=== PATIENT | female | born 1950 | race Caucasian/White ===

== ENCOUNTER 2017-01-18 10:38 | Inpatient (IN) | payer MEDICARE, OTHER ==
[2017-01-18 10:38] VITALS: BMI 17.4
[2017-01-18 11:12] LABS: BASO # 0.04 K/mm3 (0.0-2.0); BASO % 0.4 % (0.0-3.0); EOS # 0.1 (0.0-0.7); EOS % 0.4 % (1.5-5.0); GRAN % 73.3 % (50.0-68.0); HEMOGLOBIN 12.6 gm/dL (12.0-16.0); LYMPH # 2.2 (1.2-3.4); LYMPH % 19.7 % (22.0-35.0); MEAN CELL VOLUME 89.5 fL (80.0-105.0); MEAN CORPUSCULAR HEMOGLOBIN 30.9 pg (25.0-35.0); MEAN CORPUSCULAR HGB CONC 34.5 g/dl (31.0-37.0); MEAN PLATELET VOLUME 9.7 fl (7.0-11.0); MONO # 0.7 (0.1-0.6); MONO % 6.2 % (1.0-6.0); PLATELET COUNT 404 10^3/uL (120.0-450.0); RBC 4.08 10^6/uL (3.5-6.1); RED CELL DISTRIBUTION WIDTH 13.3 % (11.5-14.5); WHITE BLOOD COUNT 11.3 10^3/ul (4.5-11.0)
[2017-01-18 11:14] LABS: ALB/GLOB RATIO 1.3 (1.1-1.8); ALBUMIN 4.5 g/dL (3.0-4.8); ALT/SGPT 29 U/L (7-56); AST/SGOT 28 U/L (15-39); BLOOD UREA NITROGEN 10 mg/dL (7-21); CALCIUM 9.8 mg/dL (8.4-10.5); GFR AFRICAN-AMERICAN > 60; GFR NON-AFRICAN AMERICAN > 60
[2017-01-18 11:17] LABS: INR 1.09 (0.93-1.08); PARTIAL THROMBOPLASTIN TIME 30.3 Seconds (23.7-30.8); PROTHROMBIN TIME 11.8 Seconds (9.9-11.8)
[2017-01-18 11:26] LABS: B-TYPE NATRIURETIC PEPTIDE 447 pg/mL (0-450)
[2017-01-18 11:33] LABS: TROPONIN I < 0.01 ng/mL
--- NOTE | 2017-01-18 11:51 | RAD ---
HISTORY: chest pain COMPARISON: No prior. FINDINGS: LUNGS: No active pulmonary disease. PLEURA: No significant pleural effusion identified, no pneumothorax apparent. CARDIOVASCULAR: Normal. OSSEOUS STRUCTURES: No significant abnormalities. VISUALIZED UPPER ABDOMEN: Normal. OTHER FINDINGS: None. IMPRESSION: No active disease.
--- NOTE | 2017-01-18 11:55 | ED PDOC ---
Arrival/HPI - General Chief Complaint: Chest Pain Time Seen by Provider: 01/18/17 11:13 Historian: Patient - History of Present Illness Narrative History of Present Illness (Text): 01/18/17 11:58 A 66 year old female presents to the emergency department complaining of near syncope since this morning and retrosternal chest pain. Patient also reports dyspnea on exertion and chest pain is exertional in nature. Patient is a smoker. Denies any other complaints at this time. PMD: Dr. Lopez Symptom Onset: Sudden Symptom Course: Unchanged Activities at Onset: Rest Context: Home Past Medical History - Provider Review Nursing Documentation Reviewed: Yes - Infectious Disease Hx of Infectious Diseases: None - Cardiac Hx Cardiac Disorders: Yes Hx Hypertension: Yes - Pulmonary Hx Respiratory Disorders: No - HEENT Hx HEENT Disorder: No - Renal Hx Renal Disorder: No - Endocrine/Metabolic Hx Endocrine Disorders: No - Integumentary Hx Dermatological Disorder: No - Musculoskeletal/Rheumatological Hx Musculoskeletal Disorders: No - Gastrointestinal Hx Gastrointestinal Disorders: No - Psychiatric Hx Psychophysiologic Disorder: No Hx Substance Use: No - Past Surgical History Past Surgical History: No Previous - Anesthesia Hx Anesthesia: No Hx Anesthesia Reactions: No Hx Malignant Hyperthermia: No - Suicidal Assessment Feels Threatened In Home Enviroment: No Family/Social History - Physician Review Nursing Documentation Reviewed: Yes Family/Social History: No Known Family HX Smoking Status: Current Some Days Smoker Hx Alcohol Use: Yes Frequency of alcohol use: Socially Hx Substance Use: No Allergies/Home Meds Allergies/Adverse Reactions: Allergies No Known Allergies Allergy (Verified 05/27/14 05:42) Home Medications: Home Meds Medication Instructions Recorded Confirmed Losartan [Cozaar] 25 mg PO DAILY 01/18/17 01/18/17 Review of Systems - Physician Review All systems were reviewed & negative as marked: Yes Physical Exam - Physical Exam Narrative Physical Exam (Text): 01/18/17 11:56 - Review of Systems Constitutional: Normal. absent: Fatigue, Weight Change, Fevers Eyes: Normal ENT: Normal Respiratory: Normal absent: SOB, Cough, Sputum Cardiovascular: retrosternal chest pain, near syncope absent: Palpitations Gastrointestinal: Normal absent: Abdominal pain, Diarrhea, Nausea, Vomiting Genitourinary: Normal. absent: Dysuria, Frequency, Hematuria Musculoskeletal: Normal. absent: Arthralgias, Back Pain, Neck Pain Skin: Normal Neurological: Normal absent: Focal Weakness Endocrine: Normal Hemo/Lymphatic: Normal Psychiatric: Normal - Physical exam Patient appears age appropriate, speaking full sentences without difficulty - Systems Exam Head: Present: Atraumatic, Normocephalic Pupils: Present: PERRL Extraocular Muscles: Present: EOMI Conjunctiva: Present: Normal Mouth: Present: Moist Mucous Membranes Neck: Present: Normal Range of Motion. No: MIDLINE TENDERNESS, Paraspinal Tenderness Respiratory/Chest: Present: Clear to Auscultation, Good Air Exchange. No: Respiratory Distress, Accessory Muscle Use, Tachypnic Cardiovascular: Present: Regular Rate and Rhythm, Normal S1, S2, Peripheral Pulses Present. No: Murmurs Abdomen: Present: Normal Bowel Sounds, No: Tenderness, Peritoneal Signs, Rebound, Guarding, Distention Back: Present: Normal Inspection. No: Midline Tenderness, Paraspinal Tenderness Upper Extremity: Present: Normal Inspection. No: Cyanosis, Edema Lower Extremity: Present: Normal Inspection. No: Edema Neurological: Present: GCS=15, Speech Normal, cranial nerves II through XII fully intact with no cerebellar abnormality, neuro-sensory fully intact. No focal neurological deficits. Skin: Present: Warm, Dry, Normal Color. No: Rashes Lymphatic: Present: OX3, NI, NC Psychiatric: Present: Alert, Oriented x 3, Normal Insight, Normal Concentration Vital Signs Reviewed: Yes Vital Signs Temp Pulse Resp BP Pulse Ox 01/18/17 12:24 67 20 177/73 H 100 01/18/17 11:04 97.9 F 01/18/17 10:50 63 18 150/73 100 Blood Pressure: Normal Pulse: Regular Respiratory Rate: Normal Appearance: Positive for: Well-Appearing, Non-Toxic, Comfortable Pain Distress: None Mental Status: Positive for: Alert and Oriented X 3 Medical Decision Making ED Course and Treatment: 01/18/17 11:47 Impression: A 66 year old female with near syncope and chest pain. Differential Diagnosis included but are not limited to: acute coronary syndrome vs. pneumonia Plan: -- EKG -- chest xray -- labs -- Aspirin, Nitroglycerin -- Reassess and disposition Prior Visits: Notes and results from previous visits were reviewed. Patient was last seen in the emergency department on 05/27/14 for evaluation of lower back pain radiating to right leg. Progress Notes: EKG: Ordered, reviewed, and independently interpreted the EKG. Rate : 70 BPM Rhythm : NSR Interpretation : No ST-segment elevations, normal axis, normal intervals. Interpreted by me. Repeat EKG done 1/2 hr later. EKG: Ordered, reviewed, and independently interpreted the EKG. Rate : 60 BPM Rhythm : NSR Interpretation : No ST-segment elevations, normal axis, normal intervals, no evolving changes. Interpreted by me. 01/18/17 11:55 chest xray Creator : Juanpablo Scott MD IMPRESSION: No active disease. 01/18/17 12:[address] Lopez, states to admit to hospitalist pt states she is still having pain 3rd EKG with no evolving changes, troponin negative hospitalist paged, awaiting callback 01/18/17 13:[address] May paged 01/18/17 13:[address] May in detail, accepted pt to her service with Dr. Kim on consult pt states she feels much better and denies complaints, states pain resolved with duo/nebs - Lab Interpretations Lab Results: 01/18/17 10:50 01/18/17 10:50 Lab Results 01/18/17 10:50: Sodium 136, Potassium 3.8, Chloride 100, Carbon Dioxide 24, Anion Gap 16, BUN 10, Creatinine 0.6, Est GFR ( Amer) > 60, Est GFR (Non- Af Amer) > 60, Random Glucose 113 H, Calcium 9.8, Total Bilirubin 0.5, AST 28, ALT 29, Alkaline Phosphatase 110, Lactate Dehydrogenase 435, Total Creatine Kinase 58, Troponin I < 0.01, NT-Pro-B Natriuret Pep 447, Total Protein 7.9, Albumin 4.5, Globulin 3.4, Albumin/Globulin Ratio 1.3 01/18/17 10:50: PT 11.8, INR 1.09 H, APTT 30.3 01/18/17 10:50: WBC 11.3 H, RBC 4.08, Hgb 12.6, Hct 36.5, MCV 89.5, MCH 30.9, MCHC 34.5, RDW 13.3, Plt Count 404, MPV 9.7, Gran % 73.3 H, Lymph % (Auto) 19.7 L, [place] % (Auto) 6.2 H, Eos % (Auto) 0.4 L, Baso % (Auto) 0.4, Gran # 8.30 H, Lymph # 2.2, H[place]go # 0.7 H, Eos # 0.1, Baso # 0.04 I have reviewed the lab results: Yes - RAD Interpretation Radiology Orders: 01/18/17 10:54 CHEST PORTABLE [RAD] Stat - EKG Interpretation Interpreted by ED Physician: Yes Type: 12 lead EKG - Medication Orders Current Medication Orders: Discontinued Medications Albuterol/Ipratropium (Duoneb 3 Mg/0.5 Mg (3 Ml) Ud) Confirm Administered Dose 3 ml .ROUTE .STK-MED ONE Stop: 01/18/17 12:19 Last Admin: 01/18/17 12:20 Dose: 3 ml Aspirin (Aspirin Chewable) 324 mg PO STAT STA Stop: 01/18/17 11:14 Last Admin: 01/18/17 11:18 Dose: 324 mg Ketorolac Tromethamine (Toradol) 15 mg IVP STAT STA Stop: 01/18/17 12:01 Last Admin: 01/18/17 12:06 Dose: 15 mg Nitroglycerin (Nitrostat Sl Tab) 0.3 mg SL STAT STA Stop: 01/18/17 11:14 Last Admin: 01/18/17 11:20 Dose: 0.3 mg - Scribe Statement The provider has reviewed the documentation as recorded by the Reed Cortés Provider Scribe Attestation: All medical record entries made by the Scriblizbeth were at my direction and personally dictated by me. I have reviewed the chart and agree that the record accurately reflects my personal performance of the history, physical exam, medical decision making, and the department course for this patient. I have also personally directed, reviewed, and agree with the discharge instructions and disposition. Disposition/Present on Arrival - Present on Arrival Any Indicators Present on Arrival: No History of DVT/PE: No History of Uncontrolled Diabetes: No Urinary Catheter: No History of Decub. Ulcer: No History Surgical Site Infection Following: None - Disposition Have Diagnosis and Disposition been Completed?: Yes Diagnosis: Chest pain Disposition: HOSPITALIZED Disposition Time: 13:20 Patient Plan: Observation Patient Problems: Current Active Problems Problem Status Onset Chest pain Acute Condition: FAIR Discharge Instructions (ExitCare): Chest Pain (ED) Referrals: Fran Lopez MD [Primary Care Provider] - Follow up with primary
[2017-01-18] MEDS ORDERED: Albuterol-Ipratrop 3 mg / 0.5 (3 ml) UD ONE (12:18)
[2017-01-18] MEDS ORDERED: Albuterol-Ipratrop 3 mg / 0.5 (3 ml) UD IH PRN (13:22)
--- NOTE | 2017-01-18 16:28 | CARD ---
APPROVED REPORT EKG Measurement Heart [id number] [place] [id number] <Conclusion> Normal sinus rhythm with sinus arrhythmia Minimal voltage criteria for LVH, may be normal variant Borderline ECG
--- NOTE | 2017-01-18 16:30 | CARD ---
APPROVED REPORT EKG Measurement Heart [id number] [place] [id number] [id number] <Conclusion> Sinus bradycardia Minimal voltage criteria for LVH, may be normal variant Septal infarct, age undetermined Abnormal ECG
--- NOTE | 2017-01-18 16:33 | CARD ---
APPROVED REPORT EKG Measurement Heart [id number] [place] 116P64 [id number] <Conclusion> Normal sinus rhythm Moderate voltage criteria for LVH, may be normal variant Borderline ECG
[2017-01-18] MEDS ORDERED: Pneumococcal 23-Valent Vaccine IM ONE (16:48)
[2017-01-18 18:10] LABS: TROPONIN I < 0.01 ng/mL
[2017-01-18] MEDS ORDERED: Labetalol 5 mg/ml Inj 20ML IV STA (20:48)
--- NOTE | 2017-01-18 20:52 | CP.PCM.PN ---
Subjective - Date & Time of Evaluation Date of Evaluation: 01/18/17 Time of Evaluation: 20:47 - Subjective Subjective: Patient was seen at bedside. Her blood pressure was high-230/100, HR was 75/min. She also complained of low back pain. Denies headache, dizziness,lightheadedness,paraesthesia,weakness,leg weakness. Medical record was reviewed. This 66 year old woman was admitted with chest pain, cough and shortness of breath. Has PMH of HTN,COPD. Draft 230/100 75 back pain 22:16 219/86 Still has low back pain. Rx, Hydralazine 10 mg IV stat. Percocet 5/325 i PO stat. Objective - Vital Signs/Intake and Output Vital Signs (last 24 hours): Temp Pulse Resp BP Pulse Ox 98.3 F 73 20 196/96 H 97 01/18/17 16:57 01/18/17 18:00 01/18/17 16:57 01/18/17 18:20 01/18/17 14:45 - Medications Medications: Current Medications Albuterol/Ipratropium (Duoneb 3 Mg/0.5 Mg (3 Ml) Ud) 3 ml IH Q4H PRN PRN Reason: Wheezing Aspirin (Ecotrin) 81 mg PO DAILY LUDY Losartan Potassium (Cozaar) 25 mg PO DAILY LUDY - Labs Labs: PT 11.8 Seconds (9.9-11.8) 01/18/17 10:50 INR 1.09 (0.93-1.08) H 01/18/17 10:50 APTT 30.3 Seconds (23.7-30.8) 01/18/17 10:50 Assessment and Plan - Assessment and Plan (Free Text) Assessment: Elevated blood pressure reading. Hypertensive emergency. HTN. COPD. Chest pain. Low back pain. Plan: Tylenol 650 mg po stat. Hydralazine 10 mg po stat. Continue present management. 22:16 Nurse calls and tells that BP is 219/86. And she still has low back pain. Rx, Hydralazine 10 mg IV stat. Percocet 5/325 i PO stat.
[2017-01-18] MEDS ORDERED: Oxycodone/Acetaminophen 5/325 mg Tab PO STA (22:15)
[2017-01-18] MEDS: MethylPREDNISolone 40 mg Vial IVP SCH (22:26)
--- NOTE | 2017-01-19 05:24 | CON ---
DATE: REFERRING PHYSICIAN: Dr. May. REASON FOR CONSULTATION: Chest pain, cough, and shortness of breath. 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 No nausea, no vomiting, no diarrhea. No leg pain or leg swelling. PAST MEDICAL HISTORY: May have chronic obstructive lung disease, history of hypertension. SOCIAL HISTORY: She is a smoker, denied any alcohol use. FAMILY HISTORY: No significant cardiopulmonary disease reported. ALLERGIES: None known. MEDICATIONS: He is on Cozaar 25 mg daily, DuoNeb q. 4 hours p.r.n., Ecotrin 81 mg daily. REVIEW OF SYSTEMS: No headache or rhinitis. Has cough. Not much sputum production, short of breath. Had some pain earlier today and presently pain-free. No nausea, no vomiting, no diarrhea. No leg pain or leg swelling. PHYSICAL EXAMINATION GENERAL: Lying in the bed, in no acute distress. VITAL SIGNS: Temp is 98, heart rate is 74, respiratory rate is 20, blood pressure is 196/96, pulse ox 97% on room air. HEENT: Moist mucous membranes. Carotid airway, Mallampati score is 4. NECK: Supple. No JVD. LUNGS: Prolonged expiratory phase and wheezing. HEART: S1 and S2. ABDOMEN: Soft and nontender. No organomegaly. EXTREMITIES: No edema. NEUROLOGICAL: Awake, alert. Follows simple commands. LABORATORY DATA: Shows hemoglobin 12.6, hematocrit 36.5, WBC 11.3, .and platelet is 404. INR is 1.09, PTT is 30. Sodium 136, potassium 3.8, chloride 100, bicarbonate 24, BUN 10, creatinine 0.6, glucose 113, calcium 9.8. AST 28, ALT 29, alkaline phosphatase is 110, troponin is less than 0.01, albumin is 4.5. Chest x-ray done in the ER shows no infiltrate or effusion. EKG done in the ER shows normal sinus rhythm with sinus arrhythmia, minimal voltage criteria for LVH. IMPRESSION AND PLAN: Chest pain, probably muscular type with exacerbation of chronic obstructive pulmonary disease, uncontrolled hypertension, may have component of sleep apnea syndrome. Case discussed with Dr. May. We will place her on IV Solu-Medrol, doxycycline, inhaled bronchodilator. Continue antihypertensive medication, keep at 45 degree, gastric prophylaxis, DVT prophylaxis. The patient has to stop smoking. We will get chest x-ray without contrast to evaluate lung parenchyma. Thank you very much for following. Eli Mccann MD
[2017-01-19] MEDS: Albuterol-Ipratrop 3 mg / 0.5 (3 ml) UD IH SCH ×4 (06:09→19:55)
[2017-01-19] MEDS: MethylPREDNISolone 40 mg Vial IVP SCH ×3 (06:45→21:33)
[2017-01-19 10:05] LABS: HDL CHOLESTEROL 107 mg/dL (29-60)
[2017-01-19 10:16] LABS: LDL CHOLESTEROL 73 mg/dL (0-129)
[2017-01-19 10:17] LABS: TROPONIN I < 0.01 ng/mL
[2017-01-19 11:07] LABS: % IRON SATURATION 6 % (20-55); IRON 21 ug/dL (45-180); TOTAL IRON BINDING CAPACITY 339 ug/dL (265-497)
[2017-01-19] MEDS ORDERED: Aminophylline 25 mg/ml Inj ONE (12:10)
--- NOTE | 2017-01-19 14:30 | HP ---
DATE: 01/18/2017 IDENTIFICATION DATA: The patient was seen and examined on 01/18/2017 in the ER. CHIEF COMPLAINT: Chest pain, coughing and shortness of breath. HISTORY OF PRESENT ILLNESS: Ms. 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 No nausea, vomiting or diarrhea. No hematuria and no hematochezia. No swelling of the leg. No headache or dizziness. PAST MEDICAL HISTORY: Chronic obstructive lung disease and history of hypertension. SOCIAL HISTORY: Active smoker and denies any alcohol abuse. FAMILY HISTORY: No cardiomyopathy. No significant family history. ALLERGIES: THE PATIENT IS NOT ALLERGIC TO ANY MEDICATION. HOME MEDICATIONS: Cozaar, DuoNeb and Ecotrin. REVIEW OF SYSTEMS: The patient is seen and examined on the bedside and looking comfortable in telemetry. Discussion held with Dr. Mccann and the patient's nursing staff. Chest pain is better. Shortness of breath is better. No nausea, vomiting or diarrhea. No hematuria. No hematochezia. No swelling of the leg. PHYSICAL EXAMINATION: VITAL SIGNS: Temperature is 98, heart rate is 74, respiratory rate is 20, blood pressure of 196/59 and pulse oximetry 97% on room air. HEENT: Head is normocephalic and atraumatic. Eyes, PERRLA. Extraocular muscles intact. Conjunctivae are clear. Nose is patent. Mucous membranes moist.. NECK: Supple. No carotid bruit. No JVD or thyromegaly. CHEST: Bilaterally symmetrical. CARDIOPULMONARY: S1 and S2, positive. LUNGS: Clear to auscultation. ABDOMEN: Soft. Bowel sounds positive. No organomegaly. EXTREMITIES: No edema. No cyanosis. NEUROLOGIC: The patient is awake and alert. Moving all four extremities. No focal deficits. LABORATORY DATA: Hemoglobin of 12.6, hematocrit of 33.5, white blood cell of 11.3 and platelets of 404. Sodium of 136, potassium of 3.8, BUN of 10, creatinine of 0.6, and glucose of 113. AST of 28 and ALT of 29. ASSESSMENT AND PLAN: Ms. Keith Pickett came with chest pain, looks as muscular type with exacerbation of chronic obstructive pulmonary disease, uncontrolled hypertension, and sleep apnea syndrome. Discussion held with Dr. Mccann, started the patient on Solu-Medrol, doxycycline, and inhaled bronchodilator. Urged to quit smoking. Antihypertensive, gastric prophylaxis. The patient has chest x-ray done that showed no active disease by Dr. Mccann and CAT scan of the chest without contrast . The patient was seen by Dr. Cook ,for back pain and Dr. Cook gave hydralazine IV stat because of uncontrolled hypertension, Percocet given stat. We will follow up. Radha May MD MTDD
--- NOTE | 2017-01-19 15:03 | PN ---
DATE: 01/19/2017 PULMONARY PROGRESS NOTE REFERRING PHYSICIAN: Dr. May. SUBJECTIVE: The patient is examined and seen in the Nuclear Medicine Department where she was seen by Dr. May for cardiac workup which is in progress. Still some issues with uncontrolled hypertension. Still has some mild cough and shortness of breath. No chest pain on examination. No abdominal pain. No dysuria. No leg pain or leg swelling. PHYSICAL EXAMINATION: GENERAL: In no acute distress. VITAL SIGNS: Temperature is 98, heart rate is 77, respiratory rate is 20, blood pressure 183/77, pulse ox 99% on room air. HEENT: Small oral cavity. Crowded airway. NECK: Supple. No JVD. LUNGS: scattered rhonchi and wheezing. HEART: S1 and S2. ABDOMEN: Soft and nontender. No organomegaly. EXTREMITIES: No edema. NEUROLOGICAL: Awake, alert. Follow simple commands. MEDICATIONS: She is on hydralazine 10 mg q.i.d. p.r.n., Cozaar 100 mg daily, doxycycline 100 mg twice a day, DuoNeb q. 6 hours, Ecotrin 81 mg daily, Solu-Medrol 20 mg q. 8 hours. LABORATORY DATA: Shows iron today is 21. Cholesterol is 201. TSH is 0.63. CAT scan of the chest done and the report is still pending. IMPRESSION AND PLAN: Exacerbation of chronic obstructive lung disease, atypical chest pain with uncontrolled hypertension, may have a sleep apnea syndrome. Case discussed with Dr. May. Continue IV and inhaled bronchodilator. Continue antihypertensive medication and closely watch blood pressure, if continues to stay uncontrolled, may need hypertension workup including need to be ruled out. We will give her NicoDerm patch. Eli Mccann MD
--- NOTE | 2017-01-19 15:42 | CARD ---
APPROVED REPORT Protocol: LEXISCAN Test Type: Lexiscan Sestamibi Stress Test Attending Physician: Dr. Eli Kim Referring Physician: Dr. Radha May Test Indications: Chest Pain Height:5 ft 0 in Weight:90lbs Medications: Duoneb, Solumedrol, Percocet, Aspirin, Hydralazine, Trandate, Toradol Medical History: 66 y/o female with a history of htn, current smoker Target HR: 155 bpm Resting ECG: normal Resting Heart Rate: 85 bpm Resting Blood Pressure: 196/82mmHg Submaximum (85%): 132 bpm PROCEDURE Pharmacologic stress testing was performed using 0.4mg per 5ml of regadenoson given intravenously over 7-10 seconds. Reversal agent aminophyline 100 mg, given intravenously for Other. POST EXERCISE Reason for Termination: Protocol completed Target HR: No Max HR: 84 bpm 67% of Maximum Predicted HR: 155 bpm Exercise duration: 02:13 min:sec, 0 Stage Exercise capacity: 1.0METs Max Blood Pressure: 196/82mmHg Blood Pressure response to exercise: normal resting BP - appropriate response Heart Rate response to exercise: appropriate Chest Pain: No, none Angina index: 0 Arrhythmia: No, none ST Change: No, none Deviation: 0 mm TEST SUMMARY [id number]. INFUSIONDOSE 101:[id number]/.0. INFUSIONDOSE 201:[id number]/.0. INFUSIONDOSE 300:[id number]/.0. INTERPRETATION Stress EKG Conclusion: Negative IV Lexiscan for ischemia and for chest pain, Nuclear scan to follow. Signed by Eli Kim Electronically Approved: 01/19/2017 13:49:56 EXAM: Myocardial Perfusion REST/STRESS Stress Test Type: Pharmacologic Imaging Protocol Rest Spect myocardial perfusion imaging was performed in supine position 45 minutes following the injection of 10.3 mCi of Tc-99 Myoview. At peak stress, the patient was injected intravenously with 30.7mCi of Tc-99 tetrofosmin after an infusion time of 0 minutes and 10 seconds. Gated Stress Spect was performed 65 minutes after intravenous Tc-99 Myoview injection. The images were gated to evaluate regional wall motion and calculate ventricular ejection fraction.Images were reconstructed using backfilter projection method in short horizontal and verticle long axis. Spect slices were generated. LV Perfusion The quality of the study is good. The left ventricle is normal in size. The right ventricle is unremarkable. The lung uptake is within normal limits. The distribution of tracer reveals normal uptake pattern throughout the LV myocardium on the stress study. The rest myocardial perfusion study shows no significant change. Wall Motion Wall motion study shows good contractility of the left ventricle. LVEF = 70%. Conclusion 1. Normal SPECT myocardial perfusion study. 2. Normal gated wall motion of the left ventricle.
--- NOTE | 2017-01-19 16:13 | CT ---
PROCEDURE: CT Chest without contrast HISTORY: copd COMPARISON: None. TECHNIQUE: Contiguous axial images were obtained through the chest without intravenous contrast enhancement. Sagittal and coronal reconstructions were performed. Radiation dose (DLP): 187 mGy-cm. This CT exam was performed using one or more of the following dose reduction techniques: Automated exposure control, adjustment of the mA and/or kV according to patient size, and/or use of iterative reconstruction technique. FINDINGS: LUNGS: There is minimal apical scarring. There is a 6 mm calcified granuloma at the right lung base. The lungs are otherwise clear MEDIASTINUM: Unremarkable thoracic aorta. No aneurysm. Normal sized heart. Main pulmonary artery unremarkable. No vascular congestion. No lymphadenopathy. PLEURA: No pleural fluid. No pneumothorax. BONES: No fracture. No destructive lesion. UPPER ABDOMEN: Grossly unremarkable. OTHER FINDINGS: None. IMPRESSION: Unremarkable non-contrast enhanced CT of the chest.
--- NOTE | 2017-01-19 16:44 | CARD ---
APPROVED REPORT EXAM: Two-dimensional and M-mode echocardiogram with Doppler and color Doppler. INDICATION Chest Pain LVFX 2D DIMENSIONS Left Atrium (2D)4.1 (1.6-4.0cm)IVSd1.1 (0.7-1.1cm) LVDd4.9 (3.9-5.9cm)PWd1.1 (0.7-1.1cm) LVDs2.8 (2.5-4.0cm)FS (%) 42.9 % LVEF (%)73.8 (>50%) M-Mode DIMENSIONS Aortic Root3.00 (2.2-3.7cm)Aortic Cusp Exc.1.50 (1.5-2.0cm) Aortic Valve AoV Peak Hdgygszy321.0cm/sAoV VTI42.2cmAO Peak GR.24mmHg LVOT Peak Lgchrsvl655.0cm/sLVOT VTI26.60cmAO Mean GR.11mmHg Mitral Valve MV E Tiqlyimw74.6cm/sMV A Royigqqk976.0cm/sE/A ratio0.7 TDI Lateral E' Peak V7.51cm/sMedial E' Peak V5.65cm/sE/Lateral E'9.5 E/Medial E'12.7 Pulmonary Valve PV Peak Teqadcql547.0cm/sPV Peak Grad.6mmHg Tricuspid Valve TR Peak Bseaqlvn749of/sRAP SVCVUISW29fyHlYO Peak Gr.29mmHg JEMY52uvUs LEFT VENTRICLE The left ventricle is normal size. There is borderline concentric left ventricular hypertrophy. The left ventricular function is normal.EF-65-70% There is normal LV segmental wall motion. Transmitral Doppler flow pattern is Grade III-reversible restrictive diastolic dysfunction. No left ventricle thrombus noted on this study. There is no ventricular septal defect visualized. There is no left ventricular aneurysm. There is no mass noted in the left ventricle. RIGHT VENTRICLE The right ventricle is normal size. There is normal right ventricular wall thickness. The right ventricular systolic function is normal. ATRIA The left atrium is mildly dilated. The right atrium size is normal. The interatrial septum is intact with no evidence for an atrial septal defect. AORTIC VALVE The aortic valve is calcified but opens well. There is trace to mild aortic regurgitation. Aortic Sclerosis VS Mild There is no aortic valvular vegetation. MITRAL VALVE The mitral valve is thickened but opens well. Mitral regurgitation is trace. There is no mitral valve stenosis. There is no evidence of mitral valve prolapse. TRICUSPID VALVE The tricuspid valve leaflets are thickened , but open well. There is mild tricuspid regurgitation.RVSP-39 mmof hg. There is no tricuspid valve stenosis. There is no tricuspid valve prolapse or vegetation. PULMONIC VALVE The pulmonary valve is normal in structure. There is trace pulmonic valvular regurgitation. There is no pulmonic valvular stenosis. GREAT VESSELS The aortic root is normal in size. The ascending aorta is normal in size. The pulmonary artery is normal. The IVC is normal in size and collapses >50% with inspiration. PERICARDIAL EFFUSION There is no pleural effusion. There is no pericardial effusion. <Conclusion> The left ventricle is normal size. There is borderline concentric left ventricular hypertrophy. The left ventricular function is normal.EF-65-70% There is trace to mild aortic regurgitation. Aortic Sclerosis VS Mild Mitral regurgitation is trace. There is mild tricuspid regurgitation.RVSP-39 mmof hg. There is no pericardial effusion. The IVC is normal in size and collapses >50% with inspiration.
[2017-01-19] MEDS: PREDNISOLONE 1% OD SCH ×2 (17:23→21:34)
[2017-01-19] MEDS: EYE OD SCH ×2 (17:23→21:34)
[2017-01-19 17:32] LABS: FOLATE 18.6 ng/mL
--- NOTE | 2017-01-19 18:56 | CON ---
DATE: 01/19/2017 REASON FOR CONSULTATION: Cardiac evaluation, chest pain, shortness of breath. 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 Lopez sent to the ER and found to be uncontrolled hypertension. Initial blood pressure at one point 230/100 last night, initially was 170. The patient denies any episode of chest pain or recent exertion prior to that. Though she felt some tightness in the chest but no further episode of tightness or dyspnea on exertion was noted. PAST MEDICAL HISTORY: Significant for hypertension, questionably to COPD. SOCIAL HISTORY: Active tobacco abuse. FAMILY HISTORY: No significant history of coronary artery disease. ALLERGIES: No known drug allergies. CURRENT MEDICATIONS: The patient is taking Cozaar 25 mg, DuoNeb treatment p.r.n. and Ecotrin. REVIEW OF SYSTEMS: As per HPI. EKG shows normal sinus rhythm. No acute ST changes noted. LVH noted. PHYSICAL EXAMINATION: VITAL SIGNS: Height of the patient 5 feet. Weight of the patient 92 pounds. Blood pressure 172/74, heart rate 77, temperature febrile. HEENT: PERRLA. Extraocular muscles intact. NECK: Supple. No carotid bruits. No thyromegaly. CHEST: Clear to auscultation. HEART: S1 and S2 regular. ABDOMEN: Soft. EXTREMITIES: Clubbing and cyanosis negative. LABORATORY DATA: Blood workup as follows: WBC 11.3, hemoglobin 12.6, hematocrit 36.5, platelet count 44. Chemistries show sodium 130, potassium 3.9, chloride 100, carbon dioxide 24, anion gap of 16, BUN 10, creatinine 0.6, glucose 113. Troponin x2 negative. EKG shows normal sinus, no acute ST-T changes noted, and the patient possibly, the symptoms have been acute, uncontrolled hypertension and possible exacerbation of COPD. So far no evidence of acute OK. IMPRESSION: A 66 -year-old female with a history of active tobacco abuse, borderline hypertension, on Cozaar at low doses, admitted with uncontrolled hypertension. During the night, the patient's blood pressure went to 230/110, this morning also 190. The patent patient becomes bradycardic and junctional bradycardia, but after that no further episode of arrhythmia noted, possibly related to beta priya given IV. Rule out myocardial infarction, unlikely. Rule out coronary artery disease, those are unlikely, low probability. RECOMMENDATION: We will get echo to LV function. We will do stress test, also chronotropic incompetence. We will increase Cozaar to 100, give 10 mg of Norvasc, and also depending upon the response, we will continue hydralazine. We will send the workup for pheochromocytoma. Thank you for consult. For further recommendations and hospital course, we will follow with you. Eli Kim MD cc: Masoud Jeronimo MD
[2017-01-20] MEDS: Albuterol-Ipratrop 3 mg / 0.5 (3 ml) UD IH SCH ×3 (01:18→13:16)
--- NOTE | 2017-01-20 02:57 | PN ---
DATE: SUBJECTIVE: The patient seen and examined at the bedside, looks comfortable. Looks like tired and exhausted, went for many testing. Cough is better. Shortness of breath is better. No hematuria. No hematochezia. No swelling of the legs. No chest pain. PHYSICAL EXAMINATION VITAL SIGNS: Temperature 98.1, heart rate 77, respiratory rate is 20, blood pressure 180/77, pulse oximetry 99% on room air. HEENT: Normocephalic and atraumatic. Eyes: PERRLA. Extraocular motion is intact. Conjunctivae clear. Nose patent. NECK: Supple. No carotid bruits or thyromegaly. CHEST: Bilaterally symmetrical. HEART: S1 and S2 positive. LUNGS: Clear to auscultation. ABDOMEN: Soft. Bowel sounds present. No organomegaly. EXTREMITIES: No edema. No cyanosis. NEUROLOGIC: The patient is awake and alert. Moving all four extremities. No focal deficit. MEDICATIONS: Hydralazine, Cozaar, doxycycline, DuoNeb, Ecotrin and Solu-Medrol tapering doses. LABORATORY DATA: Iron 21, Cholesterol is 201. TSH is 0.63. CAT scan of the chest done. According to Dr. Ashley Geronimo, unremarkable non-contrast CT scan of the chest. ASSESSMENT AND PLAN: The patient is a 66-year-old lady with history of hypertension, questionable chronic obstructive pulmonary disease, active smoker and abuser, borderline hypertension on Cozaar at low dosage, he was admitted in the hospital with accelerated hypertension, blood pressure went to 230/110. The patient became bradycardic and junctional bradycardia, but after that no further episode of arrhythmia noted, possibly related to beta priya given IV. Rule out myocardial infarction, unlikely as per Dr. Kim. Rule out coronary artery disease, increased his Cozaar to 100, give 10 mg of Norvasc. He send the workup of pheochromocytoma. Seen by Dr. Mccann. Length of time discussion done with Dr. Lopez. Also exacerbation of chronic obstructive pulmonary disease, atypical chest pain, sleep apnea syndrome. Continue his bronchodilators. Nicoderm patch given because the patient was heavy smoker. Stress test done showed normal SPECT myocardial perfusion study, normal gated wall motion of the left ventricle. Echocardiography done reviewed by me. GI and DVT prophylaxis. Leukocytosis. Iron deficiency. Troponin x2 is negative. Hypercholesterolemia. We will follow. Radha May MD MTDLina
[2017-01-20] MEDS: MethylPREDNISolone 40 mg Vial IVP SCH (05:13)
[2017-01-20 07:53] LABS: HEMOGLOBIN 12.9 gm/dL (12.0-16.0); MEAN CORPUSCULAR HEMOGLOBIN 30.7 pg (25.0-35.0); MEAN CORPUSCULAR HGB CONC 34.1 g/dl (31.0-37.0); MEAN PLATELET VOLUME 9.3 fl (7.0-11.0); RBC 4.2 10^6/uL (3.5-6.1); RED CELL DISTRIBUTION WIDTH 13.5 % (11.5-14.5); WHITE BLOOD COUNT 18.2 10^3/ul (4.5-11.0)
[2017-01-20 08:06] LABS: BLOOD UREA NITROGEN 18 mg/dL (7-21); CALCIUM 10.4 mg/dL (8.4-10.5); GFR AFRICAN-AMERICAN > 60; GFR NON-AFRICAN AMERICAN > 60
[2017-01-20 09:49] LABS: MEAN CELL VOLUME 91.7 fL (80.0-105.0); MEAN CORPUSCULAR HEMOGLOBIN 30.9 pg (25.0-35.0); MEAN CORPUSCULAR HGB CONC 33.7 g/dl (31.0-37.0); MEAN PLATELET VOLUME 9.3 fl (7.0-11.0); PLATELET COUNT 349 10^3/uL (120.0-450.0); RBC 4.21 10^6/uL (3.5-6.1); RED CELL DISTRIBUTION WIDTH 13.7 % (11.5-14.5); WHITE BLOOD COUNT 19.7 10^3/ul (4.5-11.0)
[2017-01-20 10:06] LABS: LYMPHOCYTE 6 % (22.0-35.0); MONOCYTE 2 % (1.0-6.0); NEUTROPHIL 92 % (50.0-70.0); PLATELET ESTIMATE NORMAL (NORMAL)
[2017-01-20] MEDS: PREDNISOLONE 1% OD SCH ×2 (10:27→14:15)
[2017-01-20] MEDS: EYE OD SCH ×2 (10:27→14:15)
[2017-01-20 10:50] LABS: URINE BILIRUBIN NEGATIVE (NEGATIVE); URINE BLOOD NEGATIVE (NEGATIVE); URINE GLUCOSE (UA) 100 mg/dL (NEGATIVE); URINE LEUKOCYTE ESTERASE NEGATIVE Leu/uL (NEGATIVE); URINE NITRATE NEGATIVE (NEGATIVE); URINE PROTEIN 100 mg/dL (<30 mg/dL); URINE UROBILINOGEN 0.2 E.U./dL (<1 E.U./dL)
[2017-01-20 10:51] LABS: URINE APPEARANCE CLEAR (CLEAR); URINE COLOR YELLOW (YELLOW)
[2017-01-20 11:36] VITALS: RESP 18
[2017-01-20 11:41] LABS: URINE EPITHELIAL CELLS 0 - 2 /hpf (0-5); URINE RBC 0 - 2 /hpf (0-2)
[2017-01-20 11:42] LABS: URINE BACTERIA FEW (NEG)
[2017-01-20 12:58] LABS: CORTISOL AM 5.2 ug/dL (4.46-22.7)
[2017-01-20 13:02] LABS: FERRITIN 47.8 ng/mL
--- NOTE | 2017-01-20 14:55 | US ---
PROCEDURE: Bilateral renal artery duplex ultrasound. CLINICAL HISTORY: Renal artery stenosis. Uncontrolled hypertension. Evaluate for renovascular hypertension. PHYSICIAN(S): Diony Kelley M.D. TECHNIQUE: Duplex sonography with color-flow Doppler was used to evaluate the visualized segments of the main renal arteries. The patient was evaluated in a fasting state. Imaging in a supine and decubitus position was performed. Limited evaluation of the arcuate waveforms and resistive indices were performed. FINDINGS: The overall quality of the study is adequate. The kidneys are normal in size, shape, and location. Renal parenchyma is normal in thickness but somewhat echogenic. The right kidney measures 10.6cm in length and the left kidney measures 9.0cm in length. No solid renal masses, abnormal calcifications, or hydronephrosis is seen. The main right renal artery is well visualized from the aorta to the hilum. The peak systolic velocity in the right main renal artery is 215 cm/sec. This is consistent with a 0 to 49% stenosis in the main right renal artery. The arcuate waveforms are normal. The resistive index is normal. The main left renal artery is somewhat tortuous but also fairly well seen from its origin to the renal hilum. The peak systolic velocity in the main left renal artery is 177cm/sec. This corresponds to a 0 to 49% stenosis in the main left renal artery. The arcuate waveforms and resistive indices are normal. IMPRESSION: 1. The main renal arteries are well visualized. 2. No sonographically significant stenosis is identified. 3. The kidneys are normal and symmetric in size. There are no solid renal masses, abnormal calcifications or hydronephrosis noted. The renal parenchyma is somewhat echogenic
--- NOTE | 2017-01-20 15:28 | US ---
PROCEDURE: Ultrasound of the Kidneys HISTORY: Hypertensive emergency COMPARISON: Abdomen/pelvis CT with contrast 05/27/2014.. TECHNIQUE: Sonogram of the kidneys. FINDINGS: RIGHT KIDNEY: Measures: 10.5 x 4.2 x 5.0 cm. Normal in size, contour and echogenicity. No stone, solid mass lesion or hydronephrosis visualized. No perinephric fluid collection. LEFT KIDNEY: Measures: 9.1 x 4.3 x 4.4 cm. Normal in size, contour and echogenicity. No stone, solid mass lesion or hydronephrosis visualized. No perinephric fluid collection. OTHER FINDINGS: None. IMPRESSION: Unremarkable renal sonogram.
--- NOTE | 2017-01-20 16:21 | CON ---
DATE: 01/20/2017 REASON FOR CONSULTATION: Accelerated hypertension, hypertensive emergency. 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 In the emergency room she was found to have elevated blood pressure readings, BP was as high as 230/100. The patient's gives a dyspnea history of hypertension for three years. She reports she was not really getting any medical help because she had no insurance. She recently got insurance. She was only on Cozaar 25 mg per day at home. She denies any chest tightness or shortness of breath at present. She denies any diaphoresis. She had an echocardiogram done yesterday, which revealed ejection fraction of 65%. Mild concentric LVH. She also had a stress test, which was normal. There is no evidence of ischemia. Her blood pressure remains elevated. She is on multiple antihypertensives at present. PAST MEDICAL AND SURGICAL HISTORY: Hypertension, no diabetes, no history of CAD, no history of any surgical procedures. FAMILY HISTORY: Hypertension. SOCIAL HISTORY: Smoker, no alcohol use, no IV drug abuse, she is single, she has two kids. ALLERGIES: NO KNOWN DRUG ALLERGIES. MEDICATION AT HOME: Cozaar 25 daily. CURRENT MEDICATION: Aldactone 25 b.i.d., hydralazine 50 b.i.d., losartan 100, aspirin 81, Microzide 12.5, amlodipine 10, Pepcid 20, Solu-Medrol 20 IV q. 8, Xanax 0.25 b.i.d., DuoNeb, and doxycycline 100 q. 12. REVIEW OF SYSTEMS: All systems are reviewed, pertinent positives as mentioned in the history of presenting illness, rest unremarkable. PHYSICAL EXAMINATION: GENERAL: Thinly built elderly lady lying in bed. VITAL SIGNS: Blood pressure 165/75, heart rate 86, respiratory rate 20, and temperature 98. HEENT: Normocephalic, atraumatic, positive pallor. NECK: Supple. No JVD. LUNGS: Bilateral rhonchi, distant breath sounds, no rales. CARDIAC: S1 and S2, regular rate and rhythm, no murmurs and no rubs. ABDOMEN: Soft, nondistended, nontender, bowel sounds present. EXTREMITIES: No lower extremity edema. LABORATORY DATA: WBC 19.7, hemoglobin 13, hematocrit 38.6 and platelets 349. Neutrophils 92, lymphocytes 6%, INR 1.09, sodium 136, potassium 4.4, chloride 101, CO2 of 24, BUN 18, creatinine 0.6, glucose 138, calcium 10.4, albumin 4.5, iron saturation 6, iron 21, TIBC 339, troponin less than 0.01. RADIOLOGY: CT of the chest unremarkable, stress test normal, echocardiogram showing 65-70% EF with mild concentric hypertrophy. ASSESSMENT: 1. Hypertensive emergency. 2. Longstanding suboptimally controlled hypertension. 3. Chronic obstructive pulmonary disease. 4. Leukocytosis with left shift, ?related to steroids. PLAN: 1. Continue max dose ARB. 2. Continue max dose CCD. 3. Agree with Aldactone 25 b.i.d. 4. Continue hydralazine 50 b.i.d.? 5. Perhaps increase Aldactone to 50 b.i.d. 6. Check urinalysis and urine culture. 7. Renal ultrasound and renal artery Doppler to rule out renal artery stenosis. 8. Taper steroids as feasible. Thank you for the courtesy of this consultation. We will follow this patient closely with you. Dilma Burks MD
[2017-01-20 16:45] VITALS: BP 166/74; PULSE 101; TEMP 97; O2SAT 98
--- NOTE | 2017-01-20 19:31 | PN ---
REASON FOR CONSULTATION: Cardiac evaluation, chest pain, shortness of breath. SUBJECTIVE: The patient is a 66-year-old female, admitted with uncontrolled hypertension, 230 blood pressure. The patient denies any chest pain, shortness of breath, or any palpation. OBJECTIVE: GENERAL: Lying flat on the bed, not in apparent distress. VITAL SIGNS: Temperature afebrile, heart rate 79, and blood pressure 142/60. HEENT: PERRLA, intact. NECK: Supple. No carotid bruit or thyromegaly. CHEST: Clear to auscultation. HEART: S1, S2, regular. ABDOMEN: Soft. EXTREMITIES: Clubbing and cyanosis negative. LABORATORY DATA: Blood workup as follows: WBC 19.7, hemoglobin 13, hematocrit 38.6, platelet count 349. Chemistry showed sodium 137, potassium 4.4, chloride 101, carbon dioxide 24, anion gap of 15, BUN 18, creatinine 0.7. TSH 0.63. Cortisol sample level in a.m. was 5.2, within the normal limit. A stress test yesterday showed normal myocardial perfusion study, no reversible ischemia, essentially normal myocardial study, ejection fraction 70%. The patient had echocardiography done that showed ejection fraction of 65% to 70%, aortic sclerosis was mild. There was [id number] aortic regurgitation, mild tricuspid regurgitation. RV systolic pressure 39. IMPRESSION: A 66-year-old female with borderline hypertension, active tobacco abuse, admitted after feeling dizzy, chest tightness. Blood pressure admitting was significantly elevated. At one point, blood pressure was 230/100. The patient was treated aggressively with antihypertensive medication. Cozaar was increased to 100 mg, Norvasc 10 mg was added, and hydralazine 25 mg b.i.d. was started. A stress test and echo was done, essentially normal. Renal ultrasound was for aldosterone, metanephrine, and phenylephrine for workup for pheochromocytoma was sent, awaiting for the result, and the patient started Aldactone 25 mg b.i.d. and hydrochlorothiazide in addition to that. The patient significantly improved. Discussed in length with Dr. Lopez 2 to 3 times. The patient's blood pressure is controlled. Possibly, we will discharge in a day or two. We will discontinue Telemetry. We will send the renal artery duplex scan. We will follow with you. Further recommendation and hospital course: For now, we will continue medication. We will repeat the blood workup in the morning and discontinue Telemetry. Thank you Dr. Lopez for providing the opportunity in taking care of the patient. We will follow with you. Eli Kim MD
[2017-01-20] MEDS ORDERED: MethylPREDNISolone 40 mg Vial IVP SCH (22:00)
== END 2017-01-20 17:56 | disposition home or self-care (01) | DRG 191 ==
LOC: ED 10:38 → ERH 13:20 → 2RSO 14:40 → OBSVTOIN 01-19 15:39
PROVIDERS: ADMIT Internal Medicine; ATTEND Internal Medicine
DX: J44.1 Chronic obstructive pulmonary disease with (acute) exacerbation (principal); I16.1 Hypertensive emergency; I10 Essential (primary) hypertension; R00.1 Bradycardia, unspecified; T50.995A Adverse effect of other drugs, medicaments and biological substances, initial encounter; G47.30 Sleep apnea, unspecified; R07.89 Other chest pain; E61.1 Iron deficiency; D72.829 Elevated white blood cell count, unspecified; T38.0X5A Adverse effect of glucocorticoids and synthetic analogues, initial encounter; E78.00 Pure hypercholesterolemia, unspecified; F17.200 Nicotine dependence, unspecified, uncomplicated; Z79.899 Other long term (current) drug therapy; R40.2412 Glasgow coma scale score 13-15, at arrival to emergency department; I51.7 Cardiomegaly; M54.5 Low back pain

== ENCOUNTER 2018-05-12 06:21 | Day surgery (SDC) | payer MEDICARE ==
[2018-05-12] MEDS ORDERED: Iodixanol 320 MG/ML 100 ML BOTTLE IV ONE (07:08)
[2018-05-12] MEDS ORDERED: Iodixanol 320 MG/ML 200 ML BOTTLE IV ONE (07:08)
[2018-05-12] MEDS ORDERED: Iohexol 350mgl/ml 50 ML ONE (07:08)
[2018-05-12] MEDS ORDERED: Lidocaine 2% Inj (20ml) ONE (07:08)
[2018-05-12] MEDS ORDERED: Phenylephrine 10 mg/ml Inj ONE (07:08)
[2018-05-12] MEDS ORDERED: Nitroglycerin 50mg in D5W 0 MG/0 ML BOTTLE IV ONE (07:08)
[2018-05-12] MEDS ORDERED: Midazolam 2 MG/2 ML VIAL ONE (07:54)
[2018-05-12] MEDS ORDERED: Sodium Chloride 0.9% 1,000 ML IV SCH (08:15)
[2018-05-12 08:33] VITALS: TEMP 98.1
[2018-05-12 08:38] VITALS: RESP 18
[2018-05-12 10:37] VITALS: O2SAT 99
--- NOTE | 2018-05-12 11:19 | CARDCATH ---
PROCEDURE DATE: 05/12/2018 PROCEDURES: 1. Left and right coronary angiography. 2. Left ventriculography. 3. Right femoral arteriography. 4. Angio-Seal deployment. HISTORY: This is a 67-year-old woman who was advised preoperative cardiac catheterization prior to carotid endarterectomy. INDICATIONS: Preoperative assessment. FINDINGS: HEMODYNAMICS : The aortic pressure was 170/70, with left ventricular pressure of 170/10. CORONARY ANATOMY: 1. The left mainstem was normal. 2. Left anterior descending artery had minimal irregularities. 3. There was a 30% tapering in the early distal segment of the vessel. 4. There was also mild irregularities at the origin at takeoff of the first diagonal branch. The first diagonal branch itself had a 50% ostial stenosis. 5. Left circumflex artery had mild irregularities, this gave rise to 1 branch bifurcating obtuse marginal branch which had a mild 30% tapering at its midportion. 6. The right coronary artery was large and dominant, this had no evidence of significant disease. LEFT VENTRICULOGRAPHY: A hand injection was performed in the left ventricle revealing evidence of concentric LVH with supernormal systolic function with an ejection fraction of 80%. There was no aortic valve gradient noted on catheter pullback. Mitral regurgitation was not assessed. RIGHT FEMORAL ARTERIOGRAPHY: The right femoral arteriogram was performed in the CRAWFORD projection. This revealed no evidence of significant disease. An appropriate level of arterial puncture. The puncture site was then closed with deployment of an Angio-Seal device. CONCLUSION: 1. Mild nonobstructive coronary artery disease. 2. Supernormal left ventricular systolic function. RECOMMENDATIONS: Given the above findings, she appears stable to proceed with her carotid surgery as planned. Continued risk factor control and hypertension control was advised. Craig Mcdaniels MD cc: Rubens Spears MD
[2018-05-12 11:41] VITALS: BP 161/73; PULSE 73
== END 2018-05-12 12:20 | disposition home or self-care (01) ==
LOC: CATH 06:21
PROVIDERS: ATTEND Internal Medicine Cardiovascular Disease
DX: I25.10 Atherosclerotic heart disease of native coronary artery without angina pectoris (principal); I10 Essential (primary) hypertension
CPT/HCPCS: 36415; 86850; 86900; 93458; 99152; C1760; C1769; C2629; J1644; J2250; J3010; J7030; J7040; Q9966

== ENCOUNTER 2018-09-23 10:41 | Inpatient (IN) | payer MEDICARE ==
[2018-09-23 10:42] VITALS: BMI 17.4
[2018-09-23] MEDS ORDERED: Sodium Chloride 0.9% 1,000 ML IV STA (11:01)
--- NOTE | 2018-09-23 11:14 | ED PDOC ---
Arrival/HPI - General Chief Complaint: GI Problem Time Seen by Provider: 09/23/18 10:49 Historian: Patient - History of Present Illness Narrative History of Present Illness (Text): 09/23/18 11:16 68 year old female, with a past medical history of COPD and sleep apnea, who presents to the emergency department complaining of nausea and vomiting for 4 days. Patient reports one episode of vomiting. She also reports non bloody diar josé miguel every 20 minutes for the past 3 days and endorses 2 episodes today. Patient reports she feels "swollen" and endorses she she has not being eating well. Patient also endorses dizziness, weakness and abdominal pain. Patient denies any fever, chills, shortness of breath, chest pain, back pain or any other complaints. She also denies any use of antibiotics. PMD: Dr. Spears Time/Duration: < week Symptom Onset: Gradual Symptom Course: Unchanged Activities at Onset: Light Context: Home Past Medical History - Provider Review Nursing Documentation Reviewed: Yes - Infectious Disease Hx of Infectious Diseases: None - Cardiac Hx Hypertension: Yes Hx Pacemaker: No - Pulmonary Hx Respiratory Disorders: No - Neurological Hx Paralysis: No - HEENT Hx HEENT Disorder: No - Renal Hx Renal Disorder: No - Endocrine/Metabolic Hx Endocrine Disorders: No - Hematological/Oncological Hx Blood Transfusions: No - Integumentary Hx Dermatological Disorder: No - Musculoskeletal/Rheumatological Hx Musculoskeletal Disorders: No - Gastrointestinal Hx Gastrointestinal Disorders: No - Psychiatric Hx Emotional Abuse: No Hx Physical Abuse: No Hx Substance Use: No - Past Surgical History Past Surgical History: No Previous - Anesthesia Hx Anesthesia Reactions: No Hx Malignant Hyperthermia: No - Suicidal Assessment Feels Threatened In Home Enviroment: No Family/Social History - Physician Review Nursing Documentation Reviewed: Yes Family/Social History: Unknown Family HX Smoking Status: Current Some Days Smoker Hx Alcohol Use: Yes (SOCIALLY) Frequency of alcohol use: Socially Hx Substance Use: No Allergies/Home Meds Allergies/Adverse Reactions: Allergies No Known Allergies Allergy (Verified 09/23/18 10:48) Review of Systems - Physician Review All systems were reviewed & negative as marked: Yes - Review of Systems Constitutional: absent: Fevers Respiratory: absent: SOB, Cough Cardiovascular: absent: Chest Pain Gastrointestinal: Abdominal Pain, Diarrhea, Nausea, Vomiting Musculoskeletal: absent: Back Pain, Neck Pain Neurological: Dizziness. absent: Headache Endocrine: absent: Diaphoresis Physical Exam Vital Signs Reviewed: Yes Vital Signs Temp Pulse Resp BP Pulse Ox 09/23/18 10:42 98.1 F 78 18 154/71 H 100 Temperature: Afebrile Blood Pressure: Hypertensive Pulse: Regular Respiratory Rate: Normal Appearance: Positive for: Non-Toxic, Comfortable, Other (appears wek) Pain Distress: None Mental Status: Positive for: Alert and Oriented X 3 - Systems Exam Head: Present: Atraumatic, Normocephalic Pupils: Present: PERRL Extroacular Muscles: Present: EOMI Conjunctiva: Present: Normal Mouth: Present: Dry Neck: Present: Normal Range of Motion Respiratory/Chest: Present: Clear to Auscultation, Good Air Exchange. No: Respiratory Distress, Accessory Muscle Use Cardiovascular: Present: Regular Rate and Rhythm, Normal S1, S2. No: Murmurs Abdomen: Present: Tenderness (diffused tenderness), Guarding (mild). No: Distention, Peritoneal Signs, Rebound Back: Present: Normal Inspection Upper Extremity: Present: Normal Inspection. No: Cyanosis, Edema Lower Extremity: Present: Normal Inspection. No: Edema Neurological: Present: Speech Normal Skin: Present: Warm, Dry, Normal Color. No: Rashes Psychiatric: Present: Alert, Oriented x 3, Normal Insight, Normal Concentration Medical Decision Making ED Course and Treatment: 09/23/18 11:12 Impression: 68 year old female presents to the emergency department complaining of nausea and vomiting x 4 days. Differential Diagnosis included but are not limited to: Acute Gastroenteritis Plan: -- VBG shock -- Labs -- Pepcid -- Zofran -- IV Fluids -- CT a/p -- Potassium chloride -- Reassess and disposition Prior Visits: Notes and results from previous visits were reviewed. Progress Notes: 09/23/18 11:17 EKG reviewed, shows: NSR at 81 bpm. Mild voltage, criteria for LVH. No ST elevation. No change in previous EKG on 01/18/17. 09/23/18 12:24 Potassium was already replaced. Patient's hemoglobin resulted as 6.5 which is low for her. Type and Screen and Iron Studies were sent. Hemocolt completed and guaic positive. Rectal exam showed external nonthrombosed hemorrhoids. Normal tone. No fissures. ([employer] Manager was Mary DEGROOT) Consent obtained for Blood transfusion. Risks vs benefits explained with Mary DEGROOT as witness. Consent placed in chart. 2 units of PRBC ordered. Lipase is elevated and LA is elevated. In light of abdominal pain and exam, will obtain a CT to evaluate for infection. 09/23/18 15:00 Accession No. : [id number] Patient Name / ID : MOHIT Christian / [id number] 09/23/2018 PROCEDURE: CT Abdomen and Pelvis with contrast IMPRESSION: There is mural thickening in the ascending and transverse colon consistent with colitis Case was discussed with Dr. Nogueira who admits for Dr. Spears. He recommends Dr. Carter for GI. Last admission patient was admitted to Dr. May. Patient is not familiar with Dr. May and states she'll be admitted to whoever Dr. Spears's service works with and she knows Dr. Nogueira. 09/23/18 15:41 I discussed the case with Dr. Carter, GI who will evaluate the patient. Recommends blood transfusion and Clear Liquid diet and that he may scope her tomorrow or Tuesday. - Critical Care Critical Care Minutes: 30 minutes - Medication Orders Current Medication Orders: Sodium Chloride (Sodium Chloride 0.9%) 1,000 mls @ 1,000 mls/hr IV .Q1H STA Stop: 09/23/18 12:00 Discontinued Medications Famotidine (Pepcid) 20 mg IVP STAT STA Stop: 09/23/18 11:02 Ondansetron HCl (Zofran Inj) 4 mg IVP STAT STA Stop: 09/23/18 11:02 - Scribe Statement The provider has reviewed the documentation as recorded by the Reed Plascencia All medical record entries made by the Reed were at my direction and personally dictated by me. I have reviewed the chart and agree that the record accurately reflects my personal performance of the history, physical exam, medical decision making, and the department course for this patient. I have also personally directed, reviewed, and agree with the discharge instructions and disposition. Disposition/Present on Arrival - Present on Arrival Any Indicators Present on Arrival: No History of DVT/PE: No History of Uncontrolled Diabetes: No Urinary Catheter: No History of Decub. Ulcer: No History Surgical Site Infection Following: None - Disposition Have Diagnosis and Disposition been Completed?: Yes Diagnosis: GI bleed Disposition: HOSPITALIZED Disposition Time: 15:42 Patient Plan: Admission Condition: FAIR
[2018-09-23 11:43] LABS: ALB/GLOB RATIO 1.3 (1.1-1.8); ALBUMIN 3.5 g/dL (3.0-4.8); ALT/SGPT 19 U/L (7-56); AST/SGOT 29 U/L (14-36); BASO # 0.01 K/mm3 (0.0-2.0); BASO % 0.2 % (0.0-3.0); BLOOD UREA NITROGEN 16 mg/dL (7-21); EOS % 0.2 % (1.5-5.0); GFR NON-AFRICAN AMERICAN > 60; LIPASE 649 U/L (23-300); LYMPH # 0.8 (1.2-3.4); LYMPH % 19.2 % (22.0-35.0); MEAN CELL VOLUME 93.9 fl (80.0-105.0); MEAN CORPUSCULAR HEMOGLOBIN 30.7 pg (25.0-35.0); MEAN CORPUSCULAR HGB CONC 32.7 g/dl (31.0-37.0); MEAN PLATELET VOLUME 9.1 fl (7.0-11.0); MONO # 0.7 (0.1-0.6); MONO % 17.9 % (1.0-6.0); RBC 2.12 10^6/uL (3.5-6.1)
[2018-09-23 11:49] LABS: VENOUS BLOOD GAS BASE EXCESS -2.4 mmol/L (0.0-2.0); VENOUS BLOOD GAS PO2 68 mm/Hg (30-55); VENOUS BLOOD PH 7.35 (7.32-7.43)
[2018-09-23] MEDS ORDERED: Potassium Chloride 20 mEq ER Tab PO STA (11:51)
[2018-09-23 12:01] LABS: HEMOGLOBIN 6.5 g/dL (12.0-16.0)
[2018-09-23] MEDS ORDERED: Iohexol 350 MG/100 ML VIAL ONE (12:31)
[2018-09-23] MEDS ORDERED: Iohexol 240 (50 ml) ONE (12:43)
[2018-09-23 13:07] LABS: IRON 10 ug/dL (45-180); TOTAL IRON BINDING CAPACITY 306 ug/dL (265-497)
[2018-09-23 13:10] LABS: % IRON SATURATION 3 % (20-55)
--- NOTE | 2018-09-23 14:51 | CT ---
Date of service: 09/23/2018 PROCEDURE: CT Abdomen and Pelvis with contrast HISTORY: abd pain; gi bleed r/o mass/diveritic/cholecystiti COMPARISON: None. TECHNIQUE: Contrast dose: 100 cc of Omni 350 Radiation dose: Total exam DLP = 184.43 mGy-cm. This CT exam was performed using one or more of the following dose reduction techniques: Automated exposure control, adjustment of the mA and/or kV according to patient size, and/or use of iterative reconstruction technique. FINDINGS: LOWER THORAX: Unremarkable. LIVER: Unremarkable. No gross lesion or ductal dilatation. GALLBLADDER AND BILE DUCTS: Unremarkable. PANCREAS: Unremarkable. No gross lesion or ductal dilatation. SPLEEN: Unremarkable. ADRENALS: Unremarkable. No mass. KIDNEYS AND URETERS: Unremarkable. No hydronephrosis. No solid mass. VASCULATURE: Unremarkable. No aortic aneurysm. Aortic calcification BOWEL: There is mural thickening in the ascending and transverse colon consistent with colitis APPENDIX: Normal appendix. PERITONEUM: Unremarkable. No free fluid. No free air. LYMPH NODES: Unremarkable. No enlarged lymph nodes. BLADDER: Unremarkable. REPRODUCTIVE: Unremarkable. BONES: No acute fracture. OTHER FINDINGS: None. IMPRESSION: There is mural thickening in the ascending and transverse colon consistent with colitis
[2018-09-23 15:50] LABS: VENOUS BLOOD GAS BASE EXCESS -4.2 mmol/L (0.0-2.0); VENOUS BLOOD GAS PO2 74 mm/Hg (30-55); VENOUS BLOOD PH 7.29 (7.32-7.43)
--- NOTE | 2018-09-23 18:35 | CARD ---
APPROVED REPORT Date of service: 09/23/2018 EKG Measurement Heart [id number] <Conclusion> Normal sinus rhythm Minimal voltage criteria for LVH, may be normal variant Borderline ECG
[2018-09-23 20:03] LABS: FERRITIN 17.8 ng/mL
[2018-09-23] MEDS ORDERED: Potassium Chloride 20 mEq/15 ml LIQ UD PO STA (22:25)
--- NOTE | 2018-09-24 04:07 | CP.PCM.PN ---
Subjective - Date & Time of Evaluation Date of Evaluation: 09/24/18 Time of Evaluation: 04:04 - Subjective Subjective: Patient was seen because I was asked to co-sign order for Imoium 4 mg PO x1, KCL 20 meq PO x 1, Stool culture stat. She has complaint of loose bowel movement, no blood , no mucus. No other complaints. Later was she was given benadryl for sleep. This 68 year old woman was admitted with nausea, vomiting,anemia,hypokalemia. Has PMH of COPD,ROSA. Potassium level is 3.5 mEq. Lipas level -649 up from [address] abd/pelvis-colitis . H & H-6.5/19.9. Objective - Vital Signs/Intake and Output Vital Signs (last 24 hours): Temp Pulse Resp BP Pulse Ox 99 F 70 20 160/60 H 100 09/24/18 01:45 09/24/18 02:00 09/24/18 01:45 09/24/18 01:45 09/23/18 16:33 Intake and Output: 09/23/18 09/24/18 18:59 06:59 Intake Total 350 280 Balance 350 280 - Medications Medications: Current Medications Amlodipine Besylate (Norvasc) 10 mg PO DAILY [facility] Hydralazine HCl (Apresoline) 25 mg PO BID [facility] Last Admin: 09/23/18 17:25 Dose: 25 mg Losartan Potassium (Cozaar) 100 mg PO DAILY [facility] Last Admin: 09/23/18 17:27 Dose: 100 mg Ondansetron HCl (Zofran Inj) 4 mg IVP Q4H PRN PRN Reason: Nausea/Vomiting Pantoprazole Sodium (Protonix Inj) 40 mg IVP DAILY [facility] - Labs Labs: 09/23/18 11:20 09/23/18 11:20 - Constitutional Appears: Well, No Acute Distress - Head Exam Head Exam: ATRAUMATIC, NORMAL INSPECTION, NORMOCEPHALIC - Eye Exam Eye Exam: Normal appearance - ENT Exam ENT Exam: Normal External Ear Exam - Neck Exam Neck Exam: Normal Inspection - Respiratory Exam Respiratory Exam: NORMAL BREATHING PATTERN - Cardiovascular Exam Cardiovascular Exam: absent: JVD - GI/Abdominal Exam GI & Abdominal Exam: absent: Distended - Rectal Exam Rectal Exam: Deferred - Exam Additional comments: Deferred. - Back Exam Back Exam: NORMAL INSPECTION - Neurological Exam Neurological Exam: Alert, Awake, Oriented x3 - Psychiatric Exam Psychiatric exam: Normal Affect, Normal Mood - Skin Skin Exam: Pallor Assessment and Plan - Assessment and Plan (Free Text) Assessment: Non intractable vomiting. Dehydration. Elevated lipase level?Pancreatitis. Anemia. Colititis. Hypokalemia. Sepsis. Diarrhoea-Gastroenteritis. Plan: PRBC transfusion. Potassium replacement. Hydration. Follow up by GI. Imodium as orderd. Stool culture as ordered.
[2018-09-24 07:26] LABS: MEAN CELL VOLUME 92.1 fl (80.0-105.0); MEAN CORPUSCULAR HEMOGLOBIN 31.2 pg (25.0-35.0); MEAN CORPUSCULAR HGB CONC 33.8 g/dl (31.0-37.0); MEAN PLATELET VOLUME 9.4 fl (7.0-11.0); RBC 2.92 10^6/uL (3.5-6.1); RED CELL DISTRIBUTION WIDTH 14.1 % (11.5-14.5); WHITE BLOOD COUNT 6.3 10^3/uL (4.5-11.0)
[2018-09-24 07:40] LABS: HEMOGLOBIN 9.1 g/dL (12.0-16.0)
[2018-09-24 08:00] LABS: ALBUMIN 2.6 g/dL (3.0-4.8); ALT/SGPT 20 U/L (7-56); AST/SGOT 21 U/L (14-36); BLOOD UREA NITROGEN 7 mg/dL (7-21); CALCIUM 8.4 mg/dL (8.4-10.5); GFR NON-AFRICAN AMERICAN > 60
[2018-09-24] MEDS ORDERED: cefTRIAXone 1 gm 1 GM/100 ML BAG IV STA (09:10)
[2018-09-24] MEDS: metroNIDAZOLE IV 500 mg/100 ml 500 MG/100 ML BAG IVPB SCH ×3 (09:55→21:13)
--- NOTE | 2018-09-24 15:28 | HP ---
DATE OF EXAM: 09/24/2018 CHIEF COMPLAINT AND HISTORY OF PRESENT ILLNESS: This is a 68-year-old female who has come in to the hospital with weakness and fatigue. The patient says that she was having nausea and vomiting for the past 4 days. She says she has been having nonbloody diarrhea. She complains that she feels swollen. She has not been eating well. She says that she had an endoscopy done about 2 to 3 years ago at this hospital. She is not sure about who the physician was who did the endoscopy. I do not see the reports in the medical records. She did have cardiac cath done in 04/[address] Mcdaniels, at that time, she was found to have mild nonobstructive coronary disease. She was found to have a hemoglobin that was 6.5 and so she was transfused. The patient is admitted for further evaluation this morning. She denies any chest pain. No shortness of breath. No headaches or dizziness. No nausea. No vomiting. No abdominal pain. No back pain. No dysuria or frequency. No nocturia. REVIEW OF SYSTEMS: All other review of symptoms are within normal limits except what is mentioned. ALLERGIES: NO KNOWN DRUG ALLERGIES. HOME MEDICATIONS: She is on aspirin, hydralazine, losartan, amlodipine. PAST MEDICAL HISTORY: Hypertension. SOCIAL HISTORY: She does drink socially. She smokes 6 cigarettes per day. Denies drug use. FAMILY HISTORY: Noncontributory. PHYSICAL EXAMINATION VITAL SIGNS: Temperature is 97.9, pulse of 64, blood pressure 146/69, respirations 18, and O2 saturation 97%. Height is 4 feet 11 inches. Weight is 91 pounds. BMI is 18.5. GENERAL: The patient is lying in bed, comfortable, and in no acute distress. HEENT: Atraumatic and normocephalic. Anicteric sclerae. Moist mucosa. [place] conjunctivae. No oral lesions. NECK: No JVD, anterior and posterior adenopathy, thyromegaly, or bruits. CARDIOVASCULAR: S1 and S2 regular. No murmurs, rubs or gallops. LUNGS: Clear to auscultation bilaterally. No wheezes, rales, or rhonchi. ABDOMEN: Bowel sounds are positive. Soft, nontender and nondistended. No hepatosplenomegaly. No rebound and no guarding EXTREMITIES: No cyanosis, clubbing, or edema. NEUROLOGIC: No facial asymmetry. Tongue is midline. No uvula deviation. Power is 5/5 upper extremities and lower extremities. Sensation intact in upper extremities and lower extremities. PSYCHIATRIC: She is awake, alert and oriented x3. No anxiety or depression. She has normal affect. GENITOURINARY: No CVA tenderness. VASCULAR: 2+ pulses in the carotid pulses and pedal pulses. SKIN: No erythema or nodules SPINE: Shows normal curvature. LABORATORY DATA: White count is 4.0, repeat is 6.3, hemoglobin 6.5, repeat is 9.1. She had lactate of 2.3 initially and repeat was 0.8. Chemistry shows a sodium 136, potassium is 3.5. She has an iron saturation of 3% with a ferritin of 17. Her B12 is 934. EKG shows sinus rhythm with minimal voltage criteria for LVH. CT of the abdomen and pelvis done shows mural thickening in the ascending and transverse colon consistent with colitis. ASSESSMENT 1. Acute anemia secondary to iron deficiency. 2. Colitis, mild. 3. Insomnia. 4. Hypertension. PLAN: The patient is admitted to the hospital. She denies any bloody bowel movements or black stools. She does have hemoglobin is significant elevated with severe iron deficiency, I believe that this is most likely iron deficiency. She does have a colitis that shown on CAT scan, I do not know if this is significant. I will get the GI to evaluate. I will place her on antibiotics with Flagyl and Rocephin. The patient will also continue her amlodipine for her hypertension. She is going to be on her losartan as well. She was given potassium for her hypokalemia. She will most likely need iron replacement because of her deficiency. She is going to be advanced on her diet to a regular diet. I will continue her on full liquid diet and wait for evaluation by GI. Ronny Nogueira MD
[2018-09-24] MEDS: Vancomycin 25 MG/ML PO SCH ×2 (16:48→18:27)
[2018-09-25] MEDS: Vancomycin 25 MG/ML PO SCH ×5 (00:52→23:41)
--- NOTE | 2018-09-25 01:10 | CON ---
DATE: 09/24/2018 REASON FOR CONSULTATION: Anemia, drop in blood count. GI bleeding. HISTORY OF PRESENT ILLNESS: This patient was seen and evaluated earlier. This 68-year-old patient with past medical history of COPD, hypertension, who presented to the emergency room with complaints of nausea and vomiting. The patient also had episodes of loose bowel movement for nearly about three to four days. The patient initially noticed stool was dark then it became cleared. The patient also complaining of some abdominal discomfort. No fever. The patient denies having had an endoscopy or colonoscopy done in the past. PAST MEDICAL HISTORY: Significant as above. SOCIAL HISTORY: Positive for smoking. Denies alcohol. FAMILY HISTORY: Noncontributory. ALLERGIES: NO KNOWN DRUG ALLERGIES. REVIEW OF SYSTEMS: Positive as above. Other systems reviewed, negative. PHYSICAL EXAMINATION: GENERAL: The patient is lying on the bed, not in acute distress. HEENT: Atraumatic and anicteric. NECK: Supple. HEART: S1 and S2 heard. LUNGS: Bilateral air entry present. ABDOMEN: Soft. There is no tenderness. EXTREMITIES: No edema. No cyanosis. RECTAL: The patient did have rectal examination done, stool for occult blood positive. No obvious melena. LABORATORY DATA: The patient came with hemoglobin of 6.5, hematocrit 19.9, WBC count 4, MCV is elevated at 93, and platelet count 336. The patient did receive 2 units of packed RBC, hemoglobin appropriately improved to 9.1. Chemistry showed LFTs normal, but albumin when she came in was 3.6, after hydration today is about 2.6. Iron deficiency pattern saturation is only 3%. IMPRESSION: This is a 68-year-old patient admitted with abdominal pain, diarrhea, and found to have significant dropped in blood count with hemoglobin of 6.5, possible gastrointestinal bleeding. The patient did report history of some dark stool for 3 or 4 days ago. The patient also has history of episode of loose bowel movements. Stool for Clostridium difficile antigen has been reported as positive. The patient did have a CT scan of abdomen and pelvis done, which was reviewed showed some thickening of the ascending colon and also transverse colon. The patient does have mild elevated lipase level, which is nonspecific. The patient did have an MRI angiogram done to further evaluate the blood pressure in the past, which was okay. RECOMMENDATIONS: We would recommend; 1. The colitis could be infectious colitis with an ischemia. In view of this, the patient does have significant anemia with drop in blood count rule out any upper GI source or blood loss to be considered. The patient denies having taking this nonsteroidal antiinflammatory drugs. We would recommend close followup of the hemoglobin, hematocrit and transfuse. 2. Continue the IV Protonix. 3. The patient would benefit from upper gastrointestinal endoscopy to further evaluate and we will also consider flexible sigmoidoscopy in view of the history of C. difficile antigen positive rule out any pseudomembranous colitis. The patient will add p.o. vancomycin for C. difficile colitis. Further evaluation will be based on clinical course of the patient. We will also request for abdominal Doppler to evaluate the superior mesenteric artery, inferior mesenteric artery and also celiac artery. In view of the significant colitis involving the right side and also transverse colon to rule out any . Other differential diagnoses should include infectious and also inflammatory bowel disease. Since the antigen is positive in the setting of diarrhea, we have to consider pseudomembranous colitis. We will also request abdominal ultrasound also to rule out any gallstones. Thank you very much for allowing us to participate in the care of the patient. Randolph Carter MD
--- NOTE | 2018-09-25 04:52 | CP.PCM.PN ---
Subjective - Date & Time of Evaluation Date of Evaluation: 09/25/18 Time of Evaluation: 04:52 - Subjective Subjective: To bed dictated. Insomnia. Rx,Benadryl as ordered. Objective - Vital Signs/Intake and Output Vital Signs (last 24 hours): Temp Pulse Resp BP Pulse Ox 97.9 F 76 18 145/63 97 09/24/18 06:00 09/25/18 02:00 09/24/18 06:00 09/24/18 18:25 09/24/18 06:00 Intake and Output: 09/24/18 09/25/18 18:59 06:59 Intake Total 310 Balance 310 - Medications Medications: Current Medications Amlodipine Besylate (Norvasc) 10 mg PO DAILY [facility] Last Admin: 09/24/18 09:56 Dose: 10 mg Hydralazine HCl (Apresoline) 25 mg PO BID [facility] Last Admin: 09/24/18 18:25 Dose: 25 mg Metronidazole (Flagyl) 500 mg in 100 mls @ 100 mls/hr IVPB Q8 [facility]; Protocol Last Admin: 09/24/18 21:13 Dose: 100 mls/hr Iron Sucrose 200 mg/ Sodium (Chloride) 110 mls @ 110 mls/hr IVPB DAILY [facility] Stop: 09/29/18 10:01 Last Admin: 09/24/18 11:19 Dose: 110 mls/hr Losartan Potassium (Cozaar) 100 mg PO DAILY [facility] Last Admin: 09/24/18 09:56 Dose: 100 mg Ondansetron HCl (Zofran Inj) 4 mg IVP Q4H PRN PRN Reason: Nausea/Vomiting Pantoprazole Sodium (Protonix Inj) 40 mg IVP DAILY [facility] Last Admin: 09/24/18 09:52 Dose: 40 mg Vancomycin HCl (Vancocin 25 Mg/Ml (Oral Use)) 250 mg PO Q6 [facility]; Protocol Last Admin: 09/25/18 00:52 Dose: 250 mg - Labs Labs: 09/24/18 06:30 09/24/18 06:30
[2018-09-25] MEDS: metroNIDAZOLE IV 500 mg/100 ml 500 MG/100 ML BAG IVPB SCH ×3 (05:02→21:33)
[2018-09-25 06:40] LABS: HEMOGLOBIN 9.3 g/dL (12.0-16.0); MEAN CELL VOLUME 91.9 fl (80.0-105.0); MEAN CORPUSCULAR HEMOGLOBIN 30.1 pg (25.0-35.0); MEAN CORPUSCULAR HGB CONC 32.7 g/dl (31.0-37.0); MEAN PLATELET VOLUME 9.1 fl (7.0-11.0); RBC 3.09 10^6/uL (3.5-6.1); RED CELL DISTRIBUTION WIDTH 14.4 % (11.5-14.5); WHITE BLOOD COUNT 7.3 10^3/uL (4.5-11.0)
--- NOTE | 2018-09-25 07:12 | CP.PCM.PN ---
<Trevon Mccoy - Last Filed: 09/25/18 09:27> Subjective - Date & Time of Evaluation Date of Evaluation: 09/25/18 Time of Evaluation: 07:30 - Subjective Subjective: Trevon Mccoy- Internal Medicine Resident- Progress Note Behalf of Dr. Nogueira Subjective: Patient seen and examined at bedside. No acute events overnight. States abdominal discomfort has improved and N/V have resolved. Offers no new complain ts at this time. Denies fever, chills, chest pain, SOB, diarrhea, constipation, and urinary symptoms. 12 Point ROS negative except as indicated in the HPI Physical Examination: - Constitutional Appears: no acute distress - Head Exam Head Exam: ATRAUMATIC, NORMOCEPHALIC - Eye Exam Eye Exam: PERRL - ENT Exam ENT Exam: Mucous Membranes Moist - Respiratory Exam Respiratory Exam: CTA bilaterally - Cardiovascular Exam Cardiovascular Exam: +S1, +S2. absent: Systolic Murmur - GI/Abdominal Exam GI & Abdominal Exam: soft, non- distended - Neurological Exam Neurological exam: awake, alert, oriented x 3, responds to verbal stimuli - Extremities Extremities Exam: no cyanosis, no clubbing - Skin Skin Exam: dry, warm Assessment and Plan: GI Hemorrhage Colitis- ischemic vs infective Htn COPD Insomnia Normocytic Anemia- iron def vs GI bleed Hypokalemia Imaging Studies: 09/23/18 CT Abdomen and Pelvis with contrast: There is mural thickening in the ascending and transverse colon consistent with colitis Continue metronidazole and vanocmycin for colitis. C diff antigen is positive but toxin is negative. GI consulted- recommend upper endoscopy and flex sig. Abdominal ultrasound ordered and pending. Continue daily protonix and transfuse pRBCs with Hgb <7 as needed. Continue NPO diet in light of scope. Continue amlodipine, losartan, and hydralazine for tx of htn. Continue venofer for iron supplementation. Patient case reviewed with and plan approved by attending physician, Dr. Nogueira. Objective - Vital Signs/Intake and Output Vital Signs (last 24 hours): Temp Pulse Resp BP Pulse Ox 97.9 F 61 18 145/63 97 09/24/18 06:00 09/25/18 06:00 09/24/18 06:00 09/24/18 18:25 09/24/18 06:00 Intake and Output: 09/25/18 09/25/18 06:59 18:59 Intake Total 120 Output Total 0 Balance 120 - Medications Medications: Current Medications Amlodipine Besylate (Norvasc) 10 mg PO DAILY [facility] Last Admin: 09/24/18 09:56 Dose: 10 mg Hydralazine HCl (Apresoline) 25 mg PO BID [facility] Last Admin: 09/24/18 18:25 Dose: 25 mg Metronidazole (Flagyl) 500 mg in 100 mls @ 100 mls/hr IVPB Q8 [facility]; Protocol Last Admin: 09/25/18 05:02 Dose: 100 mls/hr Iron Sucrose 200 mg/ Sodium (Chloride) 110 mls @ 110 mls/hr IVPB DAILY [facility] Stop: 09/29/18 10:01 Last Admin: 09/24/18 11:19 Dose: 110 mls/hr Losartan Potassium (Cozaar) 100 mg PO DAILY [facility] Last Admin: 09/24/18 09:56 Dose: 100 mg Ondansetron HCl (Zofran Inj) 4 mg IVP Q4H PRN PRN Reason: Nausea/Vomiting Pantoprazole Sodium (Protonix Inj) 40 mg IVP DAILY [facility] Last Admin: 09/24/18 09:52 Dose: 40 mg Vancomycin HCl (Vancocin 25 Mg/Ml (Oral Use)) 250 mg PO Q6 [facility]; Protocol Last Admin: 09/25/18 06:53 Dose: 250 mg - Labs Labs: 09/24/18 06:30 09/24/18 06:30 <Ronny Nogueira S - Last Filed: 09/25/18 17:44> Subjective - Subjective Subjective: Pt seen and examined by me. I have reviewed the note of the medical equipment sales and I agree with it. I have discussed the assessment and plan with the resident. I h reed reviewed the medications and the last labs. Objective - Vital Signs/Intake and Output Vital Signs (last 24 hours): Temp Pulse Resp BP Pulse Ox 97.7 F 65 20 101/68 100 09/25/18 16:26 09/25/18 17:37 09/25/18 16:26 09/25/18 17:37 09/25/18 16:26 Intake and Output: 09/25/18 09/25/18 06:59 18:59 Intake Total 120 Output Total 0 Balance 120 - Medications Medications: Current Medications Amlodipine Besylate (Norvasc) 10 mg PO DAILY [facility] Last Admin: 09/24/18 09:56 Dose: 10 mg Hydralazine HCl (Apresoline) 25 mg PO BID [facility] Last Admin: 09/25/18 17:37 Dose: Not Given Metronidazole (Flagyl) 500 mg in 100 mls @ 100 mls/hr IVPB Q8 [facility]; Protocol Last Admin: 09/25/18 14:49 Dose: Not Given Iron Sucrose 200 mg/ Sodium (Chloride) 110 mls @ 110 mls/hr IVPB DAILY [facility] Stop: 09/29/18 10:01 Last Admin: 09/24/18 11:19 Dose: 110 mls/hr Losartan Potassium (Cozaar) 100 mg PO DAILY [facility] Last Admin: 09/24/18 09:56 Dose: 100 mg Ondansetron HCl (Zofran Inj) 4 mg IVP Q4H PRN PRN Reason: Nausea/Vomiting Pantoprazole Sodium (Protonix Inj) 40 mg IVP DAILY [facility] Last Admin: 09/24/18 09:52 Dose: 40 mg Vancomycin HCl (Vancocin 25 Mg/Ml (Oral Use)) 250 mg PO Q6 [facility]; Protocol Last Admin: 09/25/18 17:38 Dose: 250 mg - Labs Labs: 09/25/18 05:30 09/25/18 05:30 PT 12.8 SECONDS (9.4-12.5) H 09/25/18 11:00 INR 1.13 09/25/18 11:00
[2018-09-25 07:37] LABS: ALB/GLOB RATIO 1.1 (1.1-1.8); ALBUMIN 2.9 g/dL (3.0-4.8); ALT/SGPT 23 U/L (7-56); AST/SGOT 19 U/L (14-36); BLOOD UREA NITROGEN 5 mg/dL (7-21); CALCIUM 8.7 mg/dL (8.4-10.5); GFR NON-AFRICAN AMERICAN > 60
--- NOTE | 2018-09-25 09:35 | US ---
PROCEDURE: Duplex ultrasound of the mesenteric arteries. HISTORY: Abdominal pain. Evaluate for mesenteric ischemia. PHYSICIAN(S): Diony Kelley MD. TECHNIQUE: Duplex sonography with color-flow Doppler was used to evaluate limited segments of the abdominal aorta and proximal segments of the mesenteric arteries. FINDINGS: Visualization of the origin of the celiac axis and SMA is adequate. The peak systolic velocity in the proximal celiac axis is 137cm/sec. This is consistent with a 0-49 percentstenosis of the proximal celiac axis. The peak systolic velocity in the proximal SMA is 162cm/sec. This is consistent with a 0 to 49% proximal SMA stenosis. The proximal MANNY is patent with normal velocities IMPRESSION: 1. 0-49 proximal celiac axis stenosis. 2. 0 to 49% proximal SMA stenosis. 3. Patent proximal MANNY with normal velocities.
[2018-09-25 11:34] LABS: INR 1.13; PROTHROMBIN TIME 12.8 SECONDS (9.4-12.5)
[2018-09-25] MEDS ORDERED: Propofol 10 mg/ml Inj (20 ML) ONE ×2 (14:40→15:16)
[2018-09-25] MEDS ORDERED: Sodium Chloride 0.9% 1,000 ML IV SCH (15:00)
[2018-09-25] MEDS ORDERED: ePHEDrine 50 mg/ml Inj ONE (15:25)
--- NOTE | 2018-09-25 22:18 | PN ---
DATE: 09/25/2018 The patient was seen and examined. I do agree with note of the medical or surgical instrument maker. I was involved in the plan of care. The patient is going for an endoscopy and colonoscopy. The patient then had refused. She has colitis that is being treated with IV antibiotics. The patient was advised to get the procedure so she can find out why she is significantly anemic. The patient had an abdominal ultrasound looking for mesenteric ischemia. It did not show any significant stenosis in the vessels in the abdomen. The patient is currently on Flagyl for C. diff as well. She is on amlodipine, losartan, and hydralazine for her hypertension. She has been given Venofer because of iron-deficiency anemia. Her hemoglobin has been stable at 9.3 and she denies any pain. Ronny Nogueira MD
[2018-09-26] MEDS: Vancomycin 25 MG/ML PO SCH ×2 (05:39→12:30)
[2018-09-26] MEDS: metroNIDAZOLE IV 500 mg/100 ml 500 MG/100 ML BAG IVPB SCH (05:39)
--- NOTE | 2018-09-26 07:24 | CP.PCM.DIS ---
Provider - Provider Date of Admission: 09/23/18 14:14 Attending physician: Ronny Nogueira MD Primary care physician: Rubens Spears MD Consults: 09/23/18 16:33 Consult [Physician Consult] Routine Comment: Consulting Provider: Randolph Carter V Consulting Physician: Randolph Carter V Reason for Consult: acute anemia r/o GIB Time Spent in preparation of Discharge (in minutes): 45 Hospital Course - Lab Results Lab Results: Micro Results 09/24/18 09:30 Stool C. difficile Antigen & Toxins A,B - Final Most Recent Lab Values WBC 7.3 10^3/uL (4.5-11.0) 09/25/18 05:30 RBC 3.09 10^6/uL (3.5-6.1) L 09/25/18 05:30 Hgb 9.3 g/dL (12.0-16.0) L 09/25/18 05:30 Hct 28.4 % (36.0-48.0) L 09/25/18 05:30 MCV 91.9 fl (80.0-105.0) 09/25/18 05:30 MCH 30.1 pg (25.0-35.0) 09/25/18 05:30 MCHC 32.7 g/dl (31.0-37.0) 09/25/18 05:30 RDW 14.4 % (11.5-14.5) 09/25/18 05:30 Plt Count 371 10^3/uL (120.0-450.0) 09/25/18 05:30 MPV 9.1 fl (7.0-11.0) 09/25/18 05:30 Neut % (Auto) 62.5 % (50.0-68.0) 09/23/18 11:20 Lymph % (Auto) 19.2 % (22.0-35.0) L 09/23/18 11:20 Banner % (Auto) 17.9 % (1.0-6.0) H 09/23/18 11:20 Eos % (Auto) 0.2 % (1.5-5.0) L 09/23/18 11:20 Baso % (Auto) 0.2 % (0.0-3.0) 09/23/18 11:20 Lymph # (Auto) 0.8 (1.2-3.4) L 09/23/18 11:20 Banner # (Auto) 0.7 (0.1-0.6) H 09/23/18 11:20 Eos # (Auto) 0.0 (0.0-0.7) 09/23/18 11:20 Baso # (Auto) 0.01 K/mm3 (0.0-2.0) 09/23/18 11:20 Absolute Neuts (auto) 2.51 (1.4-6.5) 09/23/18 11:20 PT 12.8 SECONDS (9.4-12.5) H 09/25/18 11:00 INR 1.13 09/25/18 11:00 pO2 74 mm/Hg (30-55) H 09/23/18 15:30 VBG pH 7.29 (7.32-7.43) L 09/23/18 15:30 VBG pCO2 47.0 (40-60) 09/23/18 15:30 VBG HCO3 22.6 mmol/l (21-28) 09/23/18 15:30 VBG Total CO2 24.0 mmol.L (22-28) 09/23/18 15:30 VBG O2 Sat (Calc) 97.7 % (40-65) H 09/23/18 15:30 VBG Base Excess -4.2 mmol/L (0.0-2.0) L 09/23/18 15:30 VBG Potassium 4.3 mmol/L (3.6-5.2) 09/23/18 15:30 Sodium 135.0 mmol/L (132-148) 09/23/18 15:30 Chloride 106.0 mmol/L (98-107) 09/23/18 15:30 Glucose 96 mg/dl (65-105) 09/23/18 15:30 Lactate 0.8 mmol/L (0.7-2.1) 09/23/18 15:30 FiO2 21.0 % 09/23/18 15:30 Crit Value Called To Pati grimes social work manager 09/23/18 11:20 Crit Value Called By Aime 09/23/18 11:20 Blood Gas Notified Time 1149 09/23/18 11:20 Sodium 139 mmol/L (132-148) 09/25/18 05:30 Potassium 3.6 mmol/L (3.6-5.0) 09/25/18 05:30 Chloride 110 mmol/L (98-107) H 09/25/18 05:30 Carbon Dioxide 24 mmol/L (21-33) 09/25/18 05:30 Anion Gap 8 (10-20) L 09/25/18 05:30 BUN 5 mg/dL (7-21) L 09/25/18 05:30 Creatinine 0.6 mg/dl (0.7-1.2) L 09/25/18 05:30 Est GFR ( Amer) > 60 09/25/18 05:30 Est GFR (Non-Af Amer) > 60 09/25/18 05:30 POC Glucose (mg/dL) 246 mg/dL (65-110) H 09/23/18 10:46 Random Glucose 83 mg/dL (70-110) 09/25/18 05:30 Calcium 8.7 mg/dL (8.4-10.5) 09/25/18 05:30 Phosphorus 3.3 mg/dL (2.5-4.5) 09/25/18 05:30 Magnesium 1.7 mg/dL (1.7-2.2) 09/25/18 05:30 Iron 10 ug/dL (45-180) L 09/23/18 12:25 TIBC 306 ug/dL (265-497) 09/23/18 12:25 % Saturation 3 % (20-55) L 09/23/18 12:25 Ferritin 17.8 ng/mL 09/23/18 12:25 Total Bilirubin 0.1 mg/dL (0.2-1.3) L 09/25/18 05:30 AST 19 U/L (14-36) 09/25/18 05:30 ALT 23 U/L (7-56) 09/25/18 05:30 Alkaline Phosphatase 53 U/L (38-126) 09/25/18 05:30 Total Protein 5.6 g/dL (5.8-8.3) L 09/25/18 05:30 Albumin 2.9 g/dL (3.0-4.8) L 09/25/18 05:30 Globulin 2.7 gm/dL 09/25/18 05:30 Albumin/Globulin Ratio 1.1 (1.1-1.8) 09/25/18 05:30 Lipase 649 U/L (23-300) H 09/23/18 11:20 Vitamin B12 934 pg/mL (239-931) H 09/23/18 12:25 Venous Blood Potassium 4.3 mmol/L (3.6-5.2) 09/23/18 15:30 Blood Type AB NEGATIVE 09/23/18 12:25 Antibody Screen Negative 09/23/18 12:25 Crossmatch See Detail 09/23/18 12:25 BBK History Checked Patient has bt 09/23/18 12:25 - Hospital Course Hospital Course: Patient is a 68 year old female with a past medical history of COPD and HTN who was admitted for evaluation and treatment of nausea/vomiting and loose dark bowel movements. With the use of physical examinations, lab work, and imaging the patient was diagnosed with and treated for boles colitis, c. diff infection, and nonbleeding ulcer, along with the patients chronic medical conditions. During their hospital stay the patient was seen by gastroenterology (Dr. Carter) whose recommendations were both appreciated and utilized in the care for this patient. Patient underwent an EGD which revealed a non-bleeding ulcer with clean base and flex- sig which revealed left sided colitis. During their hospital stay the patient underwent a CT of the abdomen and pelvis and abdominal ultrasound which was reviewed, appreciated, and utilized in the management of the patients clinical course. Findings are listed below.Patient was treated with PO vancomycin, IV flagyl, amlodipine, hydralazine, losartan amongst other empiric/therapeutic medications. At this time the patient is medically stable for discharge. Patient understands and appreciates discharge plan. Patient instructed to follow up with primary care physicians and referrals within three to five days from discharge. Furthermore, the patient is instructed to take medications as prescribed and to return to emergency room for evaluation of new or worsening symptoms including but limited to intractable headache, fever, chills, dizziness, chest pain, shortness of breath, abdominal pain, nausea, vomiting, diarrhea, constipation, and urinary symptoms. This is a brief summary of the patients hospital course. Please see patient chart for full details. Imaging Studies During Hospital Stay: 09/23/2018 CT Abdomen and Pelvis with contrast: There is mural thickening in the ascending and transverse colon consistent with colitis 09/25/2018 Abdominal Ultrasound- 1. 0-49 proximal celiac axis stenosis. 2. 0 to 49% proximal SMA stenosis. 3. Patent proximal MANNY with normal velocities. Discharge Diagnoses: Colitis Htn COPD Insomnia Normocytic Anemia- iron def Hypokalemia- resolved Discharge Exam - Additional Findings Additional findings: - Constitutional Appears: no acute distress - Head Exam Head Exam: ATRAUMATIC, NORMOCEPHALIC - Eye Exam Eye Exam: PERRL - ENT Exam ENT Exam: Mucous Membranes Moist - Respiratory Exam Respiratory Exam: CTA bilaterally - Cardiovascular Exam Cardiovascular Exam: +S1, +S2. absent: Systolic Murmur - GI/Abdominal Exam GI & Abdominal Exam: soft, non- distended - Neurological Exam Neurological exam: awake, alert, oriented x 3, responds to verbal stimuli - Extremities Extremities Exam: no cyanosis, no clubbing - Skin Skin Exam: dry, warm Discharge Plan - Discharge Medications Prescriptions: metroNIDAZOLE [Flagyl] 500 mg PO Q8H 7 Days #21 tab Pantoprazole [Protonix] 40 mg PO DAILY #56 ect Vancomycin [Vancocin 25 mg/ml (Oral Use)] 250 mg PO Q6H 14 Days #560 ml - Follow Up Plan Condition: FAIR Disposition: HOME/ ROUTINE Instructions: Colitis, Low Fiber Diet, Clostridium difficile Additional Instructions: Patient Instructions: 1. Please take home medications as prescribed Please take metroNIDAZOLE [Flagyl] 1 tablet 500 mg via mouth every 8 hours for 7 Days Please take Vancomycin [Vancocin 25 mg/ml (Oral Use)] 250 mg via mouth every 6 hours 14 Days Please take Pantoprazole 40mg 1 tablet via mouth once a day for 8 weeks 2. Follow up with your primary care physician and referrals within three to five days from discharge. 3. Please go to the nearest emergency room for evaluation of new or worsening symptoms including but limited to intractable headache, fever, chills, dizziness, chest pain, shortness of breath, abdominal pain, nausea, vomiting, diarrhea, constipation, and urinary symptoms. Referrals: Rubens Spears MD [Primary Care Provider] - Randolph Carter MD [Medical Doctor] -
[2018-09-26] MEDS ORDERED: Pantoprazole 40 mg EC Tab PO SCH (07:30)
--- NOTE | 2018-09-26 07:32 | CP.PCM.PN ---
<Dallin Curtis - Last Filed: 09/26/18 09:07> Subjective - Date & Time of Evaluation Date of Evaluation: 09/26/18 Time of Evaluation: 07:32 - Subjective Subjective: Dallin Curtis PGY2 GI Progress Note for Dr. Carter Patient was seen and examined at bedside. She is having decreased BM's and are now soft, not as loose as before. She denies any abdominal pain or fevers/chills. She is tolerating her liquid diet. Objective - Vital Signs/Intake and Output Vital Signs (last 24 hours): Temp Pulse Resp BP Pulse Ox 97.7 F 63 20 101/68 100 09/25/18 16:26 09/26/18 06:00 09/25/18 16:26 09/25/18 17:37 09/25/18 16:26 - Medications Medications: Current Medications Amlodipine Besylate (Norvasc) 10 mg PO DAILY [facility] Last Admin: 09/24/18 09:56 Dose: 10 mg Hydralazine HCl (Apresoline) 25 mg PO BID [facility] Last Admin: 09/25/18 17:37 Dose: Not Given Metronidazole (Flagyl) 500 mg in 100 mls @ 100 mls/hr IVPB Q8 [facility]; Protocol Last Admin: 09/26/18 05:39 Dose: 100 mls/hr Iron Sucrose 200 mg/ Sodium (Chloride) 110 mls @ 110 mls/hr IVPB DAILY [facility] Stop: 09/29/18 10:01 Last Admin: 09/24/18 11:19 Dose: 110 mls/hr Losartan Potassium (Cozaar) 100 mg PO DAILY [facility] Last Admin: 09/24/18 09:56 Dose: 100 mg Ondansetron HCl (Zofran Inj) 4 mg IVP Q4H PRN PRN Reason: Nausea/Vomiting Pantoprazole Sodium (Protonix Ec Tab) 40 mg PO ACB [facility] Vancomycin HCl (Vancocin 25 Mg/Ml (Oral Use)) 250 mg PO Q6 [facility]; Protocol Last Admin: 09/26/18 05:39 Dose: 250 mg - Labs Labs: 09/25/18 05:30 09/25/18 05:30 PT 12.8 SECONDS (9.4-12.5) H 09/25/18 11:00 INR 1.13 04/01/19 11:00 - Constitutional Appears: Well, Non-toxic, No Acute Distress - Head Exam Head Exam: ATRAUMATIC, NORMAL INSPECTION, NORMOCEPHALIC - Eye Exam Eye Exam: EOMI, Normal appearance, PERRL Pupil Exam: NORMAL ACCOMODATION, PERRL - ENT Exam ENT Exam: Mucous Membranes Moist, Normal Exam - Neck Exam Neck Exam: Full ROM, Normal Inspection. absent: Lymphadenopathy - Respiratory Exam Respiratory Exam: Clear to Ausculation Bilateral, NORMAL BREATHING PATTERN. absent: Respiratory Distress - Cardiovascular Exam Cardiovascular Exam: RRR, +S1, +S2 - GI/Abdominal Exam GI & Abdominal Exam: Soft, Normal Bowel Sounds. absent: Distended, Tenderness - Extremities Exam Extremities Exam: Full ROM, Normal Capillary Refill, Normal Inspection. absent: Joint Swelling, Pedal Edema - Back Exam Back Exam: NORMAL INSPECTION - Neurological Exam Neurological Exam: Alert, Awake - Skin Skin Exam: Dry, Intact, Normal Color, Warm Assessment and Plan - Assessment and Plan (Free Text) Assessment: 68 year old female with a PMH of COPD and HTN who is admitted for nausea/vomiting and loose stools (dark). GI consulted for r/o GIB. Patient never had EGD or colonoscopy. EGD done showed non-bleeding ulcer with clean base and flex-sig showed left sided colitis and CT abd showed ascending and transverse colitis; c. diff is positive. Patient tolerating liquid diet, and is requesting to go home. Plan: - will advance diet to low fiber/low residue diet - cont PO vancomycin 250 qid x 2 weeks - cont PO flagyl 500 q8 x 1 week - cont PPI for 8 weeks - patient should f/u with Dr. Carter within 1 week of d/c - educate patient on diet and colitis condition - further recs per Dr. Carter Case was reviewed and discussed with Dr. Rivera <Randolph Carter V - Last Filed: 09/27/18 22:57> Objective - Vital Signs/Intake and Output Vital Signs (last 24 hours): Temp Pulse Resp BP Pulse Ox 98.1 F 57 L 18 160/72 H 96 09/26/18 08:19 09/26/18 10:00 09/26/18 08:19 09/26/18 09:50 09/26/18 08:19 - Labs Labs: 09/25/18 05:30 09/25/18 05:30 PT 12.8 SECONDS (9.4-12.5) H 09/25/18 11:00 INR 1.13 09/25/18 11:00 Attending/Attestation - Attestation I have personally seen and examined this patient.: Yes I have fully participated in the care of the patient.: Yes I have reviewed all pertinent clinical information, including history, physical exam and plan: Yes Notes (Text): This is a delayed addendum to the progress report dictated by the medical research assistant. This patient was seen and evaluated here earlier. Patient was advised to complete antibiotic course. And also stool for C. difficile was positive completed vancomycin course for 2 weeks. Patient would need a repeat CBC in follow-up. Will need repeat endoscopy to evaluate the healing ulcer also colonoscopy evaluation significant drop in blood count anemia. Patient was advised to follow-up with the Dr. reese in 1 week time and follow-up in our office in 2 weeks time patient fully understood about the follow-up recommendations. If the patient develops any further episodes of black stool or any other symptomatology advised to go to the ER 09/27/18 22:56
[2018-09-26 08:19] VITALS: BP 160/72; RESP 18; TEMP 98.1; O2SAT 96
[2018-09-26 15:02] VITALS: PULSE 57
--- NOTE | 2018-09-27 08:30 | DS ---
Addendum to discharge summary dictated by resident of Dr. Nogueira, covering for him. HOSPITAL COURSE: The patient is 68 years old who was admitted with nausea, vomiting, and black stools. The patient was admitted on acute care floor, had endoscopy done that showed a nonbleeding ulcer. CT scan and flexible sigmoidoscopy showed ascending and transverse colitis. Stool test was positive. The patient was started on IV antibiotics. She was given Venofer infusions. Her diet was advanced to low fiber as she was tolerating food and was anxious to go home. The patient received the last infusion of Venofer today and she is being discharged home on p.o. vancomycin 250 mg four times a day for 2 weeks and Flagyl 500 mg three times a day for one week. She is being discharged on PPI and she will follow up with Dr. Carter and PMD as an outpatient. DISCHARGE DIAGNOSES: 1. Peptic ulcer disease. 2. Clostridium difficile colitis. 3. Chronic obstructive pulmonary disease. 4. Hypertension. DISCHARGE PLAN: She will resume her medications including hydralazine 25 mg twice a day, amlodipine 10 mg daily, losartan 100 mg daily, aspirin 81 mg daily, 500 mg of Flagyl three times a day, vancomycin 250 mg four times a day for 2 weeks, Protonix 40 mg daily. Macho Caro MD
== END 2018-09-26 13:00 | disposition home or self-care (01) | DRG 372 ==
LOC: ED 10:41 → ERH 14:14 → 3RNO 15:58
PROVIDERS: ADMIT Internal Medicine Nephrology; ATTEND Internal Medicine Nephrology
PROC: 30233N1 Transfusion of Nonautologous Red Blood Cells into Peripheral Vein, Percutaneous Approach (ICD-10-PCS; 2018-09-23)
PROC: 0DB58ZX Excision of Esophagus, Via Natural or Artificial Opening Endoscopic, Diagnostic (ICD-10-PCS; 2018-09-25)
PROC: 0DB48ZX Excision of Esophagogastric Junction, Via Natural or Artificial Opening Endoscopic, Diagnostic (ICD-10-PCS; 2018-09-25)
PROC: 0DBP8ZX Excision of Rectum, Via Natural or Artificial Opening Endoscopic, Diagnostic (ICD-10-PCS; 2018-09-25)
PROC: 0DBN8ZX Excision of Sigmoid Colon, Via Natural or Artificial Opening Endoscopic, Diagnostic (ICD-10-PCS; 2018-09-25)
PROC: 0DB98ZX Excision of Duodenum, Via Natural or Artificial Opening Endoscopic, Diagnostic (ICD-10-PCS; principal; 2018-09-25 15:00)
PROC: 0DB68ZX Excision of Stomach, Via Natural or Artificial Opening Endoscopic, Diagnostic (ICD-10-PCS; 2018-09-25 15:00)
DX: A04.72 Enterocolitis due to Clostridium difficile, not specified as recurrent (principal); K51.50 Left sided colitis without complications; Z68.1 Body mass index [BMI] 19.9 or less, adult; G47.33 Obstructive sleep apnea (adult) (pediatric); E87.6 Hypokalemia; E86.0 Dehydration; I10 Essential (primary) hypertension; D50.9 Iron deficiency anemia, unspecified; J44.9 Chronic obstructive pulmonary disease, unspecified; G47.00 Insomnia, unspecified; K27.9 Peptic ulcer, site unspecified, unspecified as acute or chronic, without hemorrhage or perforation; F17.210 Nicotine dependence, cigarettes, uncomplicated; Z79.82 Long term (current) use of aspirin